=== PATIENT | female | born 1945 | race Caucasian/White ===

== ENCOUNTER 2017-12-17 10:32 | Emergency (ER) | payer MEDICARE ==
[~2017-12-17] VITALS: Ht 172.7 cm; Wt 95.2 kg
[2017-12-17] MEDS ORDERED: LEVSOD88 PO (10:44)
[2017-12-17] MEDS ORDERED: Dyazide 37.5-21 EACH PO (10:46)
[2017-12-17] MEDS ORDERED: Zantac150 MG PO (10:47)
[2017-12-17] MEDS ORDERED: Metformin HCl500 MG PO (10:47)
[2017-12-17] MEDS ORDERED: TRAZ100 PO (10:48)
[2017-12-17] MEDS ORDERED: SERT100 PO (10:48)
[2017-12-17] MEDS ORDERED: SIMV10 PO (10:48)
[2017-12-17] MEDS ORDERED: Keflex500 MG PO (11:52)
== END 2017-12-17 12:06 | disposition home or self-care (01) ==
LOC: ER 10:32
DX: L03.032 Cellulitis of left toe (principal); E11.9 Type 2 diabetes mellitus without complications; I10 Essential (primary) hypertension; Z79.899 Other long term (current) drug therapy; Z79.84 Long term (current) use of oral hypoglycemic drugs; Z87.891 Personal history of nicotine dependence
CPT/HCPCS: 73630; 99283-25

== ENCOUNTER → 2018-11-14 | Outpatient (CLI) | payer MEDICARE ==
[~2018-11-14] MED LIST: ASCO500 PO; Aspirin EC81 MG PO; Dyazide 37.5-21 EACH PO; FISH OIL 1,0001 EAC1 PO; Keflex500 MG PO; LEVSOD88 PO; MELATIN3 MG PO; MIRALAX17 GM PO; MULTI-DAY PLUS1 EAC1 PO; Metformin HCl1000 MG PO; Metformin HCl500 MG PO; SERT100 PO; SIMV10 PO; Simvastatin10 MG PO; Synthroid88 MCG PO; TRAZ100 PO; VITAMIN D-32000 UNIT PO; Zantac150 MG PO
[2018-11-14 12:32] LABS: BASOPHILS ABSOLUTE AUTO 0.04 K/mm3 (0.00-0.23); BASOPHILS PERCENT AUTO 1 % (0-2); EOSINOPHILS ABSOLUTE AUTO 0.12 K/mm3 (0.00-0.68); EOSINOPHILS PERCENT AUTO 2 % (0-6); Hematocrit 38.1 % (33.0-51.0); Hemoglobin 12.5 g/dL (11.5-16.0); IMMATURE GRAN ABSOLUTE AUTO 0.02 K/mm3 (0.00-0.10); IMMATURE GRAN PERCENT AUTO 0 % (0-1); LYMPHOCYTES ABSOLUTE AUTO 0.81 K/mm3 (0.84-5.20); LYMPHOCYTES PERCENT AUTO 11 % (21-46); MONOCYTES ABSOLUTE AUTO 0.82 K/mm3 (0.16-1.47); MONOCYTES PERCENT AUTO 11 % (4-13); Mean Corpuscular HGB 30.6 pg (26.0-34.0); Mean Corpuscular HGB Conc 32.8 g/dL (31.5-36.5); Mean Corpuscular Volume 93 fL (80-100); Mean Platelet Volume 10.6 fL (9.1-12.4); NEUTROPHILS PERCENT AUTO 77 % (41-73); Platelet Count 191 K/mm3 (150-400); RDW Coefficient Variation 13.5 % (11.7-14.2); RDW Standard Deviation 46.4 fL (35.1-46.3); Red Blood Cell Count 4.08 M/mm3 (3.80-5.20); White Blood Cell Count 7.71 K/mm3 (4.00-11.30)
[2018-11-14 12:44] LABS: Bun/Creatinine Ratio 19.1 (12.0-20.0); Calcium, Blood 8.6 mg/dL (8.5-10.1); Creatinine, Blood 1.15 mg/dL (0.40-1.00); Uric Acid, Blood 7.8 mg/dL (2.6-6.0)
== END | disposition home or self-care (01) ==
LOC: LAB SHORT 12:22 → LAB EV 12:22
PROVIDERS: Physician Assistant
DX: M79.672 Pain in left foot (principal)
CPT/HCPCS: 80048; 84550; 85025

== ENCOUNTER 2022-04-11 14:25 | Emergency (ER) | payer MEDICARE ==
[~2022-04-11] VITALS: Ht 175.3 cm; Wt 86.2 kg
[2022-04-11 15:42] LABS: Hematocrit 39.9 % (33.0-51.0); Hemoglobin 13.2 g/dL (11.5-16.0); Mean Corpuscular HGB 31.1 pg (26.0-34.0); Mean Corpuscular HGB Conc 33.1 g/dL (31.5-36.5); Mean Corpuscular Volume 94 fL (80-100); Mean Platelet Volume 10.6 fL (9.1-12.4); Platelet Count 268 K/mm3 (150-400); RDW Standard Deviation 44.6 fL (35.1-46.3); Red Blood Cell Count 4.25 M/mm3 (3.80-5.20)
[2022-04-11 15:56] LABS: Albumin, Blood 3.2 g/dL (3.4-5.0); Albumin/Globulin Ratio 0.7 (0.8-1.8); Bilirubin, Total 0.7 mg/dL (0.1-1.0); Calcium, Blood 9.7 mg/dL (8.5-10.1); Globulin, Blood 4.6 g/dL (2.2-4.0); Potassium, Blood 2.9 mmol/L (3.5-5.5); Total Protein, Blood 7.8 g/dL (6.4-8.2)
[2022-04-11 16:17] LABS: BAND PERCENT MAN 4 % (0-8); BASOPHILS ABSOLUTE MAN 0.18 K/mm3 (0.00-0.23); BASOPHILS PERCENT MAN 1 % (0-2); EOSINOPHILS PERCENT MAN 0 % (0-6); LYMPHOCYTES ABSOLUTE MAN 0.94 K/mm3 (0.84-5.20); LYMPHOCYTES PERCENT MAN 5 % (21-46); MONOCYTES ABSOLUTE MAN 1.13 K/mm3 (0.16-1.47); MONOCYTES PERCENT MAN 6 % (4-13); NEUTROPHILS ABSOLUTE MAN 16.63 K/mm3 (1.96-9.15); SEG NEUTROPHILS PERCENT MAN 84 % (41-73); TOTAL CELLS COUNTED 100
[2022-04-12] MEDS ORDERED: KLOR-CON M1010 MEQ PO (17:53)
[2022-04-12] MEDS ORDERED: SERT100 PO (17:54)
[2022-04-12] MEDS ORDERED: METFORMIN HCL500 M2 PO (17:55)
== END 2022-04-11 21:09 | disposition left against medical advice (07) ==
LOC: ER 14:25
PROVIDERS: Emergency Medicine
DX: R22.0 Localized swelling, mass and lump, head (principal); Z53.21 Procedure and treatment not carried out due to patient leaving prior to being seen by health care provider
CPT/HCPCS: 70491; 80053; 85025; J0295; Q9967

== ENCOUNTER 2022-04-12 13:43 | Inpatient (IN) | payer MEDICARE ==
[~2022-04-12] VITALS: Ht 175.3 cm; Wt 91.2 kg
[~2022-04-12 13:43] MED LIST changes: +DYAZIDE 37.5-21 EACH PO
[2022-04-12 14:59] LABS: Hematocrit 39.5 % (33.0-51.0); Hemoglobin 13.5 g/dL (11.5-16.0); Mean Corpuscular HGB 31.4 pg (26.0-34.0); Mean Corpuscular HGB Conc 34.2 g/dL (31.5-36.5); Mean Corpuscular Volume 92 fL (80-100); Mean Platelet Volume 10.3 fL (9.1-12.4); Platelet Count 301 K/mm3 (150-400); RDW Standard Deviation 43.8 fL (35.1-46.3); White Blood Cell Count 20.79 K/mm3 (4.00-11.30)
[2022-04-12 15:11] LABS: BASOPHILS PERCENT MAN 1 % (0-2); EOSINOPHILS PERCENT MAN 0 % (0-6); LYMPHOCYTES ABSOLUTE MAN 1.45 K/mm3 (0.84-5.20); LYMPHOCYTES PERCENT MAN 7 % (21-46); MONOCYTES ABSOLUTE MAN 1.24 K/mm3 (0.16-1.47); MONOCYTES PERCENT MAN 6 % (4-13); NEUTROPHILS ABSOLUTE MAN 17.87 K/mm3 (1.96-9.15); SEG NEUTROPHILS PERCENT MAN 86 % (41-73); TOTAL CELLS COUNTED 100
[2022-04-12 15:16] LABS: Albumin/Globulin Ratio 0.6 (0.8-1.8); Bilirubin, Total 0.6 mg/dL (0.1-1.0); Bun/Creatinine Ratio 18.3 (12.0-20.0); Calcium, Blood 9.7 mg/dL (8.5-10.1); Creatinine, Blood 1.15 mg/dL (0.40-1.00); Potassium, Blood 3.3 mmol/L (3.5-5.5)
[2022-04-12] MEDS ORDERED: KLOR-CON M1010 MEQ PO (17:53)
[2022-04-12] MEDS ORDERED: SERT100 PO (17:54)
[2022-04-12] MEDS ORDERED: METFORMIN HCL500 M2 PO (17:55)
--- NOTE | 2022-04-13 04:46 | NUR ---
PURE PAK MACHINE OPERATOR SUMMARY PT ARRIVED TO THE UNIT IN NO DISTRESS TRANSFERING HERSELF FROM ER GURNEY TO MEDICAL FLOOR BED. PT IS ALERT AND ORIENTED COMMUNICATING APPROPRIATELY W STAFF. PT HAS DENIED ANY SIGNIFICANT PAIN SINCE ARRIVING TO THE FLOOR. PTS R JAW IS VERY SWOLLEN BUT SHOWS NO SIGNS OF IMPAIRED SWALLOWING OR BREATHING. PT HAS SELPT FOR MOST OF THE NIGHT W CALL LIGHT WITHIN REACH. WILL REPORT TO ONCOMING RN.
[2022-04-13 05:09] LABS: Hematocrit 35.4 % (33.0-51.0); Hemoglobin 11.9 g/dL (11.5-16.0); Mean Corpuscular HGB 31.2 pg (26.0-34.0); Mean Corpuscular HGB Conc 33.6 g/dL (31.5-36.5); Mean Corpuscular Volume 93 fL (80-100); Mean Platelet Volume 10.1 fL (9.1-12.4); Platelet Count 265 K/mm3 (150-400); RDW Coefficient Variation 13.1 % (11.7-14.2); Red Blood Cell Count 3.81 M/mm3 (3.80-5.20)
[2022-04-13 05:44] LABS: Bun/Creatinine Ratio 19.2 (12.0-20.0); Calcium, Blood 8.7 mg/dL (8.5-10.1); Creatinine, Blood 1.04 mg/dL (0.40-1.00); Potassium, Blood 3.4 mmol/L (3.5-5.5)
--- NOTE | 2022-04-13 17:50 | NUR ---
SHIFT SUMMARY PT AOX4 AND INDEPENDENT IN THE ROOM. SHE HAS BEEN SITTING UP IN THE CHAIR, WATCHING TELEVISION ALL SHIFT. HER INITIAL IV WENT BAD AND A SECOND WAS PLACED IN THE LEFT HAND. SHE HAS HAD NO C/O P/N/V. SHE REMAINS ON A CLEAR LIQUID DIET. WILL REPORT TO THE ONCOMING NURSE.
--- NOTE | 2022-04-14 04:56 | NUR ---
SHIFT SUMMARY PATIENT HAD NO ACUTE CHANGES. AXOX 4 AND INDEPENDENT IN ROOM. PIV REMAINS INTACT. NS INFUSING AT 100 mL/HR. IV ABXS INFUSED. CBG 137. REPORTED RIGHT SIDE FACIAL PAIN IS IMPROVING. VSS/AFEBRILE. DENIES SOB AND N/V. WATCHED TV ON/OFF. CALL LIGHT IN REACH. BED IN LOWEST POSITION. WILL CONTINUE TO MONITOR UNTIL DAY SHIFT NURSE ASSUMES CARE.
[2022-04-14 09:07] LABS: Hematocrit 38.1 % (33.0-51.0); Hemoglobin 12.9 g/dL (11.5-16.0); Mean Corpuscular HGB 31.5 pg (26.0-34.0); Mean Corpuscular HGB Conc 33.9 g/dL (31.5-36.5); Mean Corpuscular Volume 93 fL (80-100); Mean Platelet Volume 10.1 fL (9.1-12.4); Platelet Count 371 K/mm3 (150-400); RDW Coefficient Variation 13.2 % (11.7-14.2); RDW Standard Deviation 45.2 fL (35.1-46.3); Red Blood Cell Count 4.09 M/mm3 (3.80-5.20)
[2022-04-14 09:27] LABS: Bun/Creatinine Ratio 21.3 (12.0-20.0); Calcium, Blood 9.2 mg/dL (8.5-10.1); Creatinine, Blood 0.89 mg/dL (0.40-1.00); Potassium, Blood 3.6 mmol/L (3.5-5.5)
[2022-04-14] MEDS ORDERED: AMOCLA875 PO (11:24)
[2022-04-14] MEDS ORDERED: DECADRON4 M1 PO (11:25)
--- NOTE | 2022-04-14 12:29 | NUR ---
DISCHARGE SUMMARY PATIENT IS ALERT AND ORIENTED. PATIENT HAS NOT HAD ANY ACUTE EVENTS THIS SHIFT. VITAL SIGNS REVIEWED. IV REMOVED WNL. PATIENT READ DISCHARGE INSTRUCTIONS. PATIENT WHEELED OUT BY THIS RN TO PATIENTS CAR, PATIENTS FAMILY DRIVING PT TO HOME.
== END 2022-04-14 12:17 | disposition home or self-care (01) | DRG 872 ==
LOC: ER 13:43 → ERHOLD 13:44 → ER 13:44 → MEDS 21:55 → ERHOLD 21:55 → MEDS 04-13 17:32 → ERHOLD 04-13 17:32 → MEDS 04-13 17:32
PROVIDERS: Internal Medicine; Physician Assistant; ADMIT Internal Medicine
DX: A41.9 Sepsis, unspecified organism (principal); E87.1 Hypo-osmolality and hyponatremia; E87.20 Acidosis, unspecified; K11.20 Sialoadenitis, unspecified; K59.09 Other constipation; I10 Essential (primary) hypertension; E87.6 Hypokalemia; E03.9 Hypothyroidism, unspecified; E11.9 Type 2 diabetes mellitus without complications; F32.A Depression, unspecified; Z23 Encounter for immunization; Z91.030 Bee allergy status; Z79.899 Other long term (current) drug therapy; Z79.84 Long term (current) use of oral hypoglycemic drugs; Z79.82 Long term (current) use of aspirin; Z98.890 Other specified postprocedural states; Z87.891 Personal history of nicotine dependence
CPT/HCPCS: 36415; 80048; 80053; 82947; 83605; 85025; 85027; 87040; 90686; 96361; 96365; 96366; 96367; 96375; 96376; 99284-25; A9270; G0008; G0378; J0295; J1100; J1885; J2270; J2405; J3480; J7030; J7050

== ENCOUNTER 2022-05-09 10:01 | Emergency (ER) | payer MEDICARE ==
[~2022-05-09] VITALS: Ht 175.3 cm; Wt 83.9 kg
[~2022-05-09 10:01] MED LIST changes: +AMOCLA875 PO; +DECADRON4 M1 PO; +KLOR-CON M1010 MEQ PO; +METFORMIN HCL500 M2 PO
[2022-05-09] MEDS ORDERED: AMOCLA875 PO (10:24)
== END 2022-05-09 10:48 | disposition home or self-care (01) ==
LOC: ER 10:01
DX: K11.20 Sialoadenitis, unspecified (principal); E11.9 Type 2 diabetes mellitus without complications; I10 Essential (primary) hypertension; Z91.038 Other insect allergy status; Z87.891 Personal history of nicotine dependence
CPT/HCPCS: A9270

== ENCOUNTER 2022-09-12 10:39 | Inpatient (IN) | payer MEDICARE ==
[~2022-09-12] VITALS: Ht 175.3 cm; Wt 78.5 kg
[~2022-09-12 10:39] MED LIST changes: +DAILY-VITE1 EAC1 PO; +EUTHYROX88 MCG PO; -FISH OIL 1,0001 EAC1 PO; -MULTI-DAY PLUS1 EAC1 PO; +OMEGA-3 FISH O1 EAC6 PO; -Synthroid88 MCG PO; -VITAMIN D-32000 UNIT PO; +Vitamin D1000 UNI1 PO
[2022-09-12 12:04] LABS: BASOPHILS ABSOLUTE AUTO 0.04 K/mm3 (0.00-0.23); BASOPHILS PERCENT AUTO 0 % (0-2); EOSINOPHILS ABSOLUTE AUTO 0.03 K/mm3 (0.00-0.68); EOSINOPHILS PERCENT AUTO 0 % (0-6); Hematocrit 37.6 % (33.0-51.0); Hemoglobin 12.7 g/dL (11.5-16.0); IMMATURE GRAN ABSOLUTE AUTO 0.08 K/mm3 (0.00-0.10); IMMATURE GRAN PERCENT AUTO 1 % (0-1); LYMPHOCYTES ABSOLUTE AUTO 0.86 K/mm3 (0.84-5.20); LYMPHOCYTES PERCENT AUTO 7 % (21-46); MONOCYTES PERCENT AUTO 7 % (4-13); Mean Corpuscular HGB 30.4 pg (26.0-34.0); Mean Corpuscular HGB Conc 33.8 g/dL (31.5-36.5); Mean Corpuscular Volume 90 fL (80-100); Mean Platelet Volume 9.8 fL (9.1-12.4); NEUTROPHILS ABSOLUTE AUTO 10.96 K/mm3 (1.96-9.15); NEUTROPHILS PERCENT AUTO 85 % (41-73); Platelet Count 250 K/mm3 (150-400); RDW Standard Deviation 45.9 fL (35.1-46.3); Red Blood Cell Count 4.18 M/mm3 (3.80-5.20); White Blood Cell Count 12.87 K/mm3 (4.00-11.30)
[2022-09-12 12:30] LABS: Albumin, Blood 3.4 g/dL (3.4-5.0); Albumin/Globulin Ratio 1.1 (0.8-1.8); Bilirubin, Total 0.6 mg/dL (0.1-1.0); Bun/Creatinine Ratio 14.6 (12.0-20.0); Calcium, Blood 8.3 mg/dL (8.5-10.1); Creatinine, Blood 3.49 mg/dL (0.40-1.00); Potassium, Blood 2.4 mmol/L (3.5-5.5); Total Protein, Blood 6.4 g/dL (6.4-8.2)
[2022-09-12 12:43] LABS: Influenza A, PCR NEGATIVE (NEGATIVE); Influenza B, PCR NEGATIVE (NEGATIVE); Resp Syncytial Virus, PCR NEGATIVE (NEGATIVE); SARS-Cov-2 (COVID-19) PCR, MMC NEGATIVE (NEGATIVE)
[2022-09-12] MEDS ORDERED: FAMO20 PO (12:48)
[2022-09-12] MEDS ORDERED: K-Dur10 MEQ PO (12:48)
[2022-09-12 16:46] LABS: Bun/Creatinine Ratio 16.8 (12.0-20.0); Calcium, Blood 8.1 mg/dL (8.5-10.1); Creatinine, Blood 2.73 mg/dL (0.40-1.00); Potassium, Blood 3.3 mmol/L (3.5-5.5)
[2022-09-12 17:36] VITALS: BP 107/63
--- NOTE | 2022-09-12 18:36 | NUR ---
BLADDER SCAN 43 ML
[2022-09-12 19:19] VITALS: BP 96/79
[2022-09-13 02:41] VITALS: BP 83/66
[2022-09-13 02:45] VITALS: BP 104/52
[2022-09-13 05:39] LABS: BASOPHILS ABSOLUTE AUTO 0.06 K/mm3 (0.00-0.23); BASOPHILS PERCENT AUTO 1 % (0-2); EOSINOPHILS ABSOLUTE AUTO 0.09 K/mm3 (0.00-0.68); EOSINOPHILS PERCENT AUTO 1 % (0-6); Hemoglobin 11.2 g/dL (11.5-16.0); IMMATURE GRAN ABSOLUTE AUTO 0.02 K/mm3 (0.00-0.10); IMMATURE GRAN PERCENT AUTO 0 % (0-1); LYMPHOCYTES ABSOLUTE AUTO 1.04 K/mm3 (0.84-5.20); LYMPHOCYTES PERCENT AUTO 15 % (21-46); MONOCYTES ABSOLUTE AUTO 0.77 K/mm3 (0.16-1.47); MONOCYTES PERCENT AUTO 11 % (4-13); Mean Corpuscular HGB 30.4 pg (26.0-34.0); Mean Corpuscular HGB Conc 32.9 g/dL (31.5-36.5); Mean Corpuscular Volume 92 fL (80-100); Mean Platelet Volume 9.9 fL (9.1-12.4); NEUTROPHILS ABSOLUTE AUTO 4.93 K/mm3 (1.96-9.15); NEUTROPHILS PERCENT AUTO 71 % (41-73); Platelet Count 218 K/mm3 (150-400); RDW Coefficient Variation 14.1 % (11.7-14.2); RDW Standard Deviation 48.1 fL (35.1-46.3); Red Blood Cell Count 3.69 M/mm3 (3.80-5.20); White Blood Cell Count 6.91 K/mm3 (4.00-11.30)
[2022-09-13 06:07] LABS: Albumin, Blood 2.8 g/dL (3.4-5.0); Bilirubin, Total 0.4 mg/dL (0.1-1.0); Bun/Creatinine Ratio 22.2 (12.0-20.0); Calcium, Blood 8.3 mg/dL (8.5-10.1); Creatinine, Blood 1.71 mg/dL (0.40-1.00); Globulin, Blood 2.8 g/dL (2.2-4.0); Potassium, Blood 3.6 mmol/L (3.5-5.5); Total Protein, Blood 5.6 g/dL (6.4-8.2)
[2022-09-13 07:04] VITALS: BP 98/86
[2022-09-13 10:46] LABS: Campylobacter Sp Not Detected (NOT DETECT); Cryptosporidium Not Detected (NOT DETECT); E. Coli O157 Not Detected (NOT DETECT); Enteroaggregative E. coli-EAEC Not Detected (NOT DETECT); Enteropathogenic E. coli-EPEC Not Detected (NOT DETECT); Enterotoxigenic E. coli-ETEC Not Detected (NOT DETECT); Plesiomonas Shigelloides Not Detected (NOT DETECT); Salmonella Sp Not Detected (NOT DETECT); Shiga Toxin-prod E. coli-STEC Not Detected (NOT DETECT); Shigella/Enteroin E. coli-EIEC Not Detected (NOT DETECT); Vibrio Cholerae Not Detected (NOT DETECT); Vibrio Sp Not Detected (NOT DETECT); Yersinia Enterocolitica Not Detected (NOT DETECT)
[2022-09-13 10:47] LABS: Adenovirus F 40/41 Not Detected (NOT DETECT); Astrovirus Not Detected (NOT DETECT); Cyclospora Cayetanensis Not Detected (NOT DETECT); Entamoeba Histolytica Not Detected (NOT DETECT); Giardia Lamblia Not Detected (NOT DETECT); Norovirus GI/GII Not Detected (NOT DETECT); Rotavirus A Not Detected (NOT DETECT); Sapovirus Not Detected (NOT DETECT)
[2022-09-13 15:14] VITALS: BP 108/63
--- NOTE | 2022-09-13 18:52 | NUR ---
SHIFT SUMMARY PT WITH 1 PERSON ASSIST USING FWW TO BATHROOM. REPORTED INCREASED DIZZINESS THIS AFTERNOON. ANTIVERT GIVEN AND PT REPORTED IT HELPED. STATED WHEN SHE HAD THE "ROOM SPINNING" FEELING IT WAS WORSE WHEN SHE TURNED HER HEAD TO THE LEFT. UP IN CHAIR FOR SUPPER AND TOLERATED WELL.
[2022-09-13 19:37] VITALS: BP 115/83
[2022-09-14 04:48] VITALS: BP 114/67
[2022-09-14 06:22] LABS: Hematocrit 32.8 % (33.0-51.0); Hemoglobin 10.6 g/dL (11.5-16.0); Mean Corpuscular HGB 30.2 pg (26.0-34.0); Mean Corpuscular HGB Conc 32.3 g/dL (31.5-36.5); Mean Corpuscular Volume 93 fL (80-100); Mean Platelet Volume 9.6 fL (9.1-12.4); Platelet Count 184 K/mm3 (150-400); RDW Coefficient Variation 14.2 % (11.7-14.2); RDW Standard Deviation 48.7 fL (35.1-46.3); Red Blood Cell Count 3.51 M/mm3 (3.80-5.20)
[2022-09-14 07:22] LABS: Albumin, Blood 2.8 g/dL (3.4-5.0); Albumin/Globulin Ratio 1.1 (0.8-1.8); Bilirubin, Total 0.5 mg/dL (0.1-1.0); Bun/Creatinine Ratio 25.5 (12.0-20.0); Calcium, Blood 8.1 mg/dL (8.5-10.1); Creatinine, Blood 1.06 mg/dL (0.40-1.00); Globulin, Blood 2.6 g/dL (2.2-4.0); Potassium, Blood 3.3 mmol/L (3.5-5.5); Total Protein, Blood 5.4 g/dL (6.4-8.2)
[2022-09-14 07:26] VITALS: BP 118/87
[2022-09-14 07:50] LABS: BAND PERCENT MAN 4 % (0-8); BASOPHILS PERCENT MAN 0 % (0-2); EOSINOPHILS ABSOLUTE MAN 0.14 K/mm3 (0.00-0.68); EOSINOPHILS PERCENT MAN 2 % (0-6); LYMPHOCYTES ABSOLUTE MAN 1.12 K/mm3 (0.84-5.20); LYMPHOCYTES PERCENT MAN 16 % (21-46); MONOCYTES ABSOLUTE MAN 0.42 K/mm3 (0.16-1.47); MONOCYTES PERCENT MAN 6 % (4-13); NEUTROPHILS ABSOLUTE MAN 5.32 K/mm3 (1.96-9.15); SEG NEUTROPHILS PERCENT MAN 72 % (41-73); TOTAL CELLS COUNTED 100
[2022-09-14] MEDS ORDERED: MECL25 PO (11:18)
--- NOTE | 2022-09-14 12:00 | NUR ---
DISCHARGE INSTRUCTIONS COMPLETED AND DISCUSSED WITH PT EXPRESSING UNDERSTANDING. SCRIPTS FAXED TO [facility]. DAUGHTER IN LAW IN TO PICK PT UP. TO [facility] VIA W/C.
== END 2022-09-14 11:53 | disposition home or self-care (01) | DRG 683 ==
LOC: ER 10:39 → MEDS 10:40 → ER 10:40 → ERHOLD 10:40 → MEDS 17:30 → ENPENDDIS 09-14 09:09 → MEDS 09-14 11:53
PROVIDERS: Emergency Medicine; Student in an Organized Health Care Education/Training Program; ADMIT Hospitalist
DX: N17.9 Acute kidney failure, unspecified (principal); E87.1 Hypo-osmolality and hyponatremia; S22.31XA Fracture of one rib, right side, initial encounter for closed fracture; E86.0 Dehydration; E87.6 Hypokalemia; Z66 Do not resuscitate; E86.9 Volume depletion, unspecified; I12.9 Hypertensive chronic kidney disease with stage 1 through stage 4 chronic kidney disease, or unspecified chronic kidney disease; E11.22 Type 2 diabetes mellitus with diabetic chronic kidney disease; N18.9 Chronic kidney disease, unspecified; I95.9 Hypotension, unspecified; E03.9 Hypothyroidism, unspecified; R91.1 Solitary pulmonary nodule; F32.A Depression, unspecified; W18.30XA Fall on same level, unspecified, initial encounter; R29.6 Repeated falls; Z20.822 Contact with and (suspected) exposure to COVID-19; Z91.030 Bee allergy status; Z98.890 Other specified postprocedural states; Z87.891 Personal history of nicotine dependence; Z79.82 Long term (current) use of aspirin; Z79.84 Long term (current) use of oral hypoglycemic drugs; Z79.899 Other long term (current) drug therapy
CPT/HCPCS: 0241U; 36415; 70450; 71260; 80048; 80053; 82550; 82947; 83735; 84439; 84443; 84484; 85007; 85025; 85027; 87507; 93005; 93010; 96365-59; 96372; 97112; 97116; 97162; 97530; 99285-25; A9270; G0378; J1650; J3480; J7030; J7050; Q9967

== ENCOUNTER 2022-09-19 20:36 | Inpatient (IN) | payer MEDICARE ==
[~2022-09-19] VITALS: Ht 175.3 cm; Wt 93.0 kg
[~2022-09-19 20:36] MED LIST changes: +FAMO20 PO; +K-Dur10 MEQ PO; +MECL25 PO
[2022-09-19 21:41] LABS: BASOPHILS ABSOLUTE AUTO 0.04 K/mm3 (0.00-0.23); BASOPHILS PERCENT AUTO 0 % (0-2); EOSINOPHILS PERCENT AUTO 0 % (0-6); Hematocrit 30.4 % (33.0-51.0); Hemoglobin 10.4 g/dL (11.5-16.0); IMMATURE GRAN ABSOLUTE AUTO 0.15 K/mm3 (0.00-0.10); IMMATURE GRAN PERCENT AUTO 1 % (0-1); LYMPHOCYTES ABSOLUTE AUTO 0.49 K/mm3 (0.84-5.20); LYMPHOCYTES PERCENT AUTO 3 % (21-46); MONOCYTES ABSOLUTE AUTO 1.25 K/mm3 (0.16-1.47); MONOCYTES PERCENT AUTO 8 % (4-13); Mean Corpuscular HGB Conc 34.2 g/dL (31.5-36.5); Mean Corpuscular Volume 88 fL (80-100); Mean Platelet Volume 9.9 fL (9.1-12.4); NEUTROPHILS ABSOLUTE AUTO 14.09 K/mm3 (1.96-9.15); NEUTROPHILS PERCENT AUTO 88 % (41-73); Platelet Count 218 K/mm3 (150-400); RDW Coefficient Variation 14.5 % (11.7-14.2); RDW Standard Deviation 46.4 fL (35.1-46.3); Red Blood Cell Count 3.47 M/mm3 (3.80-5.20); White Blood Cell Count 16.02 K/mm3 (4.00-11.30)
[2022-09-19 22:03] LABS: Albumin, Blood 2.6 g/dL (3.4-5.0); Albumin/Globulin Ratio 0.7 (0.8-1.8); Bun/Creatinine Ratio 25.1 (12.0-20.0); Calcium, Blood 9.2 mg/dL (8.5-10.1); Creatinine, Blood 0.96 mg/dL (0.40-1.00); Globulin, Blood 3.6 g/dL (2.2-4.0); Potassium, Blood 3.2 mmol/L (3.5-5.5); Total Protein, Blood 6.2 g/dL (6.4-8.2)
[2022-09-19 22:36] LABS: Creatine Kinase MB 4.1 ng/mL (0.0-3.6); Creatine Kinase MB Index 1.1 (0.0-4.0)
[2022-09-19] MEDS ORDERED: Simvastatin10 MG PO (23:40)
[2022-09-20 00:50] LABS: Source, Urine Straight Cath
[2022-09-20 03:12] VITALS: BP 115/49
--- NOTE | 2022-09-20 05:49 | NUR ---
T/F AND SUMMARY: REPORT RECIEVED FROM CRISTIAN MENDOSA RN AT 0220 AND PT T/F VIA [facility] AT 0310 TO ROOM 359. SHE'S A/OX4 AND INDEPENDENT AT BASELINE BUT REPORTS MULTIPLE FALLS (APPROX X6) RECENTLY W/ACCOMPANIED INCREASED WEAKNESS AND POSSIBLE INJURIES. SHE HAS SCATTERED BRUISES T/O BODY W/2 LARGE BRUISES TO BILAT HIPS AND SMALLER ONE TO BUTTOCKS AND X4 EXT'S. PT ALSO C/O VERY PAINFUL R.FOOT/ANKLE THAT'S OBSERVED TO BE SWOLLEN W/PINK TINGE TO TOP OF FOOT. BLE'S ARE EDEMATOUS AND SHE HAS CELLULITIS TO HER L.MIDDLE FINGER. IT'S BRIGHT RED, SWOLLEN TIGHT SKIN AND TENDERNESS. MD ALERTED TO GENERALIZED PAIN AND 9/10 FOOT PAIN, TYLENOL PRN RX'D AND WILL BE ADMINISTERED UPON VERIFICATION BY PHARMACY. IV VANCO, ZOSYN AND 1.5L NS BOLUS RECIEVED IN ER THEN ADDITIONAL DOSES OF VANCO AND ZOSYN ARE TO BE RECIEVED W/CONT NS INFUSING AT 100 ML/HR. CHEST AND R.ANKLE XRAYS WERE COMPLETED, RESULTS PENDING AND L.HAND XRAY AND ECHO PLANNED FOR TODAY. SHE WAS COMMENCED ON TELE AND IS NSR AT 80'S BPM. CONT BIOX INTACT, NO S/S RESP DISTRESS. PUREWIC CATH WAS PLACED FOR WEAKNESS, INABILITY TO WT BEAR ON R.FOOT AND PAIN. NO ACUTE CHANGES, VSS/AFEBRILE. WCTM AND REPORT TO DAY RN.
[2022-09-20 07:31] VITALS: BP 111/56
[2022-09-20 07:31] LABS: Appearance, Urine Hazy (Clear); Color, Urine Yellow (P-Yellow)
[2022-09-20 07:32] LABS: Bilirubin, Urine Neg (Neg); Blood, Urine 1+ (Neg); Glucose Qualitative, Urine Neg (Neg); Ketones, Urine 1+ (Neg); Leukocyte Esterase, Urine Neg (Neg); Nitrite, Urine Neg (Neg); Protein, Urine 2+ (Neg); Urobilinogen, Urine NORM (Normal)
[2022-09-20 07:33] LABS: Bacteria Few /hpf; Red Blood Cells, Urine 0-2 /hpf (0-2); Squamous Epithelial Cells Mod /hpf (Few); White Blood Cells, Urine 0-2 /hpf (0-5)
[2022-09-20 07:34] LABS: Amorphous Mod (0-Heavy)
--- NOTE | 2022-09-20 12:09 | NUR ---
PATEINT RESTING NO DISTRESS, RESP EVEN AND NONLABORED, CALL LIGHT WITH IN REACH
[2022-09-20 13:46] LABS: Uric Acid, Blood 3.5 mg/dL (2.6-6.0)
[2022-09-20 13:47] LABS: Bun/Creatinine Ratio 27.1 (12.0-20.0); Calcium, Blood 8.7 mg/dL (8.5-10.1); Creatinine, Blood 0.81 mg/dL (0.40-1.00); Potassium, Blood 3.6 mmol/L (3.5-5.5)
[2022-09-20 16:05] VITALS: BP 112/92
--- NOTE | 2022-09-20 18:17 | NUR ---
ALERT AND ORIENTED TO ALL, MAKES NEDS KNOWN, ANTIBIOICS CHANGED TODAY, SWELLING HAS NOT DECREASED, MINIMAL MOVEMNT, LARGE BRUISES ON BODY FROM THE FREQUENT FALLS, VSS, MEDICATED FOR PAIN WITH TYLENOL, HYDROCODONE AVAILABLE BUT PATIENT CONTINUES TO SAY ADEQUAE RELIEF FROM TYLENOL, NO ACUTE CHANGES TODAY. WILL REALY TO PM RN
[2022-09-20 19:20] LABS: Source, Urine Foley catheter
[2022-09-20 19:24] LABS: Appearance, Urine Clear (Clear); Bilirubin, Urine Neg (Neg); Blood, Urine Neg (Neg); Color, Urine Yellow (P-Yellow); Glucose Qualitative, Urine Neg (Neg); Ketones, Urine Neg (Neg); Leukocyte Esterase, Urine Neg (Neg); Nitrite, Urine Neg (Neg); Protein, Urine 2+ (Neg); Urobilinogen, Urine NORM (Normal)
[2022-09-20 19:37] LABS: Bacteria Few /hpf; Red Blood Cells, Urine 0-2 /hpf (0-2); Squamous Epithelial Cells Few /hpf (Few); Yeast/Fungi Urine Rare /hpf
[2022-09-20 20:05] VITALS: BP 119/63
[2022-09-21 05:06] VITALS: BP 117/64
--- NOTE | 2022-09-21 05:23 | NUR ---
SHIFT SUMMERY, PT HAD TEMP PF 100.9 LAST NOC AND BC CAME BACK GRAM + COCCI IN CLUSTERS. PT STARTED ON IV VANCO. PT RESTING IN BED JAVIER CATH DRAINING YELLOW URINE. CALL LIGHT IN REACH.
[2022-09-21 05:46] LABS: Hematocrit 30.6 % (33.0-51.0); Hemoglobin 10.3 g/dL (11.5-16.0); Mean Corpuscular HGB 30.5 pg (26.0-34.0); Mean Corpuscular HGB Conc 33.7 g/dL (31.5-36.5); Mean Corpuscular Volume 91 fL (80-100); Mean Platelet Volume 10.3 fL (9.1-12.4); Platelet Count 235 K/mm3 (150-400); Red Blood Cell Count 3.38 M/mm3 (3.80-5.20)
[2022-09-21 06:25] LABS: Bun/Creatinine Ratio 25.9 (12.0-20.0); Calcium, Blood 8.7 mg/dL (8.5-10.1); Creatinine, Blood 0.77 mg/dL (0.40-1.00); Potassium, Blood 3.7 mmol/L (3.5-5.5)
[2022-09-21 07:43] VITALS: BP 117/68
[2022-09-21 16:09] VITALS: BP 123/70
--- NOTE | 2022-09-21 18:31 | NUR ---
SHIFT SUMMARY PT PAINFUL IN THE BACK, L FINGER, AND R FOOT. ORTHO CONSULT CALLED FOR FX IN R FOOT. MEDICATED FOR PAIN. MRI COMPLETED. PT STRUGGLES TO HAVE HER HEAD ROLLED UP IN BED DUE TO BACK PAIN. OF LAST WEEK WHEN THEN RN DISCHARGED PT, SHE WAS WALKING TO BATHROOM INDEPENDENTLY AND HAD MINIMAL PAIN. NO UNABLE TO MOVE WITHOUT REPORTING PAIN OR HER R FOOT BEING TOUCHED. FOLE PATENT AND DRAINING CLEAR YELLOW URINE.
[2022-09-21 20:08] VITALS: BP 111/68
[2022-09-22 02:55] VITALS: BP 104/70
[2022-09-22 07:41] VITALS: BP 109/67
[2022-09-22 11:24] LABS: Hematocrit 28.7 % (33.0-51.0); Hemoglobin 9.7 g/dL (11.5-16.0); Mean Corpuscular HGB 29.8 pg (26.0-34.0); Mean Corpuscular HGB Conc 33.8 g/dL (31.5-36.5); Mean Corpuscular Volume 88 fL (80-100); Platelet Count 297 K/mm3 (150-400); RDW Coefficient Variation 14.9 % (11.7-14.2); RDW Standard Deviation 48.1 fL (35.1-46.3); Red Blood Cell Count 3.25 M/mm3 (3.80-5.20); White Blood Cell Count 20.46 K/mm3 (4.00-11.30)
[2022-09-22 11:44] LABS: Creatinine, Blood 0.68 mg/dL (0.40-1.00)
[2022-09-22 16:49] VITALS: BP 105/72
--- NOTE | 2022-09-22 18:37 | NUR ---
SHIFT SUMMARY PATIENT WITH SOME PAIN TODAY, MEDICATED WITH NORCO, WITH RELIEF. AOX4 CALLS APPROPRIATELY, CALL LIGHT IN REACH, SWELLING OF LEFT FINGER AND RIGHT LOWER LEG CONTINUE BUT LESSENED THIS EVENING.WILL CONTINUE TO MONITOR.
[2022-09-22 20:58] VITALS: BP 108/65
--- NOTE | 2022-09-23 04:31 | NUR ---
MARSHAL GOLDSTEIN. PT FELT LIKE SHE WAS GOING TO HAVE A BM PT REFUSED TO USE BED ISAACS AND HAS A 2 PERSON ASSIST TO BSC. PT UNABLE TO HAVE BM. PT IN A LOT OF PAIN AND WAS MEDICATED. PT ALSO REQUESTED HEATING PAD. PAD SET UP BUT PT WANTED TOP WAIT TILL PAIN MED TOOK AFFECT. PT STATED IF SHE FELL ASLEEP TO NOT WAKE HER TO PLACE HEATING PAD. PT SLEEPING AND APPEARS TO BE COMFORTABLE AT THIS TIME. CALL LIGHT IN REACH.
[2022-09-23 05:02] VITALS: BP 99/69
[2022-09-23 08:12] VITALS: BP 117/67
--- NOTE | 2022-09-23 11:54 | NUR ---
Plan for I/D of finger. Patient had Eliquis last night, so procedure was cancelled. Surgeon instructed RN to hold eliquis/aspirin today & NPO at midnight. Middle finger/left hand, red/swollen, reddness outlined. Patient reports severe pain with movement, unable to sit up in bed. Griffin catheter in place for retention, draining to gravity. Vitals stable, telemetry in place, HR SR @ 69. Will continue plan of care.
--- NOTE | 2022-09-23 13:00 | NUR ---
ASSUMED CARE OF PATIENT. PT LAYING IN BED WITH EYES CLOSED. BREATHING EVEN AND UNLABORED. CONTINUOUS OXYGEN MONITORING IN PLACE.
--- NOTE | 2022-09-23 13:45 | NUR ---
2048 ASSUMED CARE OF PATIENT. REPORT RECEIVED FROM TEJAS KONG RN. PER GEODESY TEACHER PT IS SR WITH OCC PAC, PVC
--- NOTE | 2022-09-23 13:55 | NUR ---
PATIENT CONSENT STATEMENT. PT CONSENTED THIS 2ND YEAR RN STUDENT TO PARTICIPATE IN HER CARE TODAY.
[2022-09-23 16:02] VITALS: BP 117/67
--- NOTE | 2022-09-23 18:44 | NUR ---
END OF SHIFT SUMMARY. PT ON CONTINUOUS PULSE OX AND MAINTAINING SATS ABOVE 92%. LEFT MIDDLE FINGER IS RED AND SWOLLEN, NO DRAINAGE PRESENT. PT EXPERIENCING BACK PAIN THROUGHOUT SHIFT THAT IS WORSENED WITH MOVEMENT AND POSITIONING. MEDICATED WITH NORCO 1X WITH SOME RELIEF. PT DENIES CHEST PAIN OR SHORTNESS OF BREATH. JAVIER CATHETER DRAINING, PT DENIES BLOATING OR PAIN FROM CATHETER.
[2022-09-23 21:20] VITALS: BP 107/54
[2022-09-24] VITALS (20 sets, daily range): BP systolic 96–131; BP diastolic 56–94
[2022-09-24 05:52] LABS: Hematocrit 27.7 % (33.0-51.0); Mean Corpuscular HGB 29.8 pg (26.0-34.0); Mean Corpuscular HGB Conc 32.5 g/dL (31.5-36.5); Mean Corpuscular Volume 92 fL (80-100); Mean Platelet Volume 9.5 fL (9.1-12.4); Platelet Count 378 K/mm3 (150-400); RDW Coefficient Variation 14.8 % (11.7-14.2); RDW Standard Deviation 50.7 fL (35.1-46.3); Red Blood Cell Count 3.02 M/mm3 (3.80-5.20)
--- NOTE | 2022-09-24 06:09 | NUR ---
PATIENT IS ALERT AND OREINTED, COOPERATIVE WITH CARE. VERY PAINFUL, TREATED PER MAR. REMAINS HYPOTENSIVE, OTHERWISE VSS. WAS NPO SINCE 0000. BEDREST TO CONT PATIENT IS NON WEIGHT BEARING TO RLE, AFTER FALL/FRACTURE. NEW IV PLACED, AND SL INBETWEEN ABT'S. WILL CONT TO MONITOR.
[2022-09-24 06:18] LABS: Bun/Creatinine Ratio 26.2 (12.0-20.0); Calcium, Blood 8.5 mg/dL (8.5-10.1); Creatinine, Blood 0.57 mg/dL (0.40-1.00); Potassium, Blood 3.8 mmol/L (3.5-5.5)
--- NOTE | 2022-09-24 18:53 | NUR ---
SHIFT SUMMARY PT A&OX4 AND PLEASANT. PT WENT FOR I&D TODAY. TOLERATED PROCEDURE WELL. PT SLEPT SEVERAL HOURS UPON GETTING BACK TO ROOM. PT DENIED PAIN IN LEFT LONG FINGER BUT DID VERBALIZE SOME TINGLING. DIGIT FEELS SAME TEMP OTHER DIGITS AND HAND. CONTINUING TO MONITOR. VSS. PT ABLE TO TOLERATE SOME DINNER. PT CALLS APPROPTIATLY. BED IN LOWEST POSITON AND CALL LIGHT IN REACH.
[2022-09-24 21:41] LABS: Vancomycin, Trough 19.2 ug/mL (5.0-10.0)
[2022-09-25 00:19] VITALS: BP 111/71
[2022-09-25 05:20] VITALS: BP 109/62
--- NOTE | 2022-09-25 06:21 | NUR ---
PATIENT REMAINS ALERT AND ORIENTED X4, COOPERATIVE WITH CARE. L HAND BANDAGE CDI, AND R FOOT WRAP IN PLACE. NO BM THIS SHIFT, OR SINCE ADMIT. BC MEDS ADMINISTERED WELL PRUNE JUICE. BRUISING TO BILATERAL HIPS FROM PREV FALL. VSS. HOWEVER, ONLY 500 DARK U/O THIS SHIFT. EDUCATED OF INCREASED FLUID NEEDS. PAIN MANAGED PER MAR. WILL CONT TO MONITOR.
--- NOTE | 2022-09-25 09:00 | NUR ---
pt laying in bed awake, a/ox4, pleasant and cooperative with care, follows commands well, denies pain at this time, lungs are clear t/o, on r/a, resp even and unlabored, no cough noted, hrr, tele in place running sr per monitor, see strip, 2+ edema noted to right foot, which is wrapped in an treasure bandage for ankle fx, other foot no edema noted, pppA+2, cap refill <3 sec, vs stable, afebrile, piv site to rfa, site is clear and patent, btx4, abd flat soft nontender, voids via araya cath at this time, urine, clear yellow urine, skin has dressing to left middle finger from cellulitis and i&d, no drainge noted, skin otherwise c/w/d, chao colindres, call light in reach.
--- NOTE | 2022-09-25 17:21 | NUR ---
Pt had a bedbath, linen change, after speaking with Dr. Rivera got her up and to the chair with some difficulty, slowly with two people, she had bad back pain moving her at all, she was medicated, prior, notified of events, and recieved orders to increase frequency of norco and add a muscle relaxant, pt sitting up in chair at this time. call light in reach.
[2022-09-25 18:22] VITALS: BP 104/62
--- NOTE | 2022-09-25 19:36 | NUR ---
pt sitting up in chair, back is hurting, gave 5mg muscle relaxant, encouraged her to ask for pain meds when she needs them and not try to wait it out, will keep her npo after mid for possible i&d tomorrow, Dr. Gauthier in to see her, removed dressing from finger and had her soak the finger in tepid water for 20 minutes, will do again before sleep, and q4hrs while awake, call light in reach.
[2022-09-25 20:20] VITALS: BP 117/70
[2022-09-26 04:41] VITALS: BP 110/69
--- NOTE | 2022-09-26 05:10 | NUR ---
SHIFT SUMMARY: A&O X 4, ABLE TO MAKE NEEDS KNOWN. USES CALL LIGHT APPROPRIATELY. TRANSFERRED BACK TO BED THIS EVENING AFTER SITTING UP IN CHAIR TODAY. WBAT ON RIGHT LEG. I&D POSSIBLE 09/26 FINGER CONTINUES WITH REDNESS AND EDEMA. FINGER SOAKED FOR 20 MINUTES Q 4 HOURS. NPO AT MIDNIGHT WHICH SHE TOLERATED WELL. PERIPHERAL IV DC ON RIGHT HAND AND NEW PERIPHERAL PLACED ON LEFT FOREARM TO CONTINUE IV ABX THERAPY. PAIN MANAGEMENT PROVIDE THIS SHIFT.
[2022-09-26 08:02] VITALS: BP 114/75
[2022-09-26 11:32] LABS: Hematocrit 32.7 % (33.0-51.0); Hemoglobin 10.6 g/dL (11.5-16.0); Mean Corpuscular HGB 29.6 pg (26.0-34.0); Mean Corpuscular HGB Conc 32.4 g/dL (31.5-36.5); Mean Corpuscular Volume 91 fL (80-100); Mean Platelet Volume 9.6 fL (9.1-12.4); Platelet Count 464 K/mm3 (150-400); RDW Coefficient Variation 14.7 % (11.7-14.2); RDW Standard Deviation 49.6 fL (35.1-46.3); Red Blood Cell Count 3.58 M/mm3 (3.80-5.20); White Blood Cell Count 15.46 K/mm3 (4.00-11.30)
[2022-09-26 11:46] LABS: International Normalized Ratio 1.14; Prothrombin Time Results 11.9 Sec (9.7-11.5)
[2022-09-26 11:51] LABS: Bun/Creatinine Ratio 26.1 (12.0-20.0); Calcium, Blood 9.3 mg/dL (8.5-10.1); Creatinine, Blood 0.73 mg/dL (0.40-1.00); Potassium, Blood 4.3 mmol/L (3.5-5.5)
[2022-09-26 13:29] LABS: BAND PERCENT MAN 2 % (0-8); BASOPHILS PERCENT MAN 0 % (0-2); EOSINOPHILS PERCENT MAN 0 % (0-6); LYMPHOCYTES ABSOLUTE MAN 0.77 K/mm3 (0.84-5.20); LYMPHOCYTES PERCENT MAN 5 % (21-46); MONOCYTES ABSOLUTE MAN 1.39 K/mm3 (0.16-1.47); MONOCYTES PERCENT MAN 9 % (4-13); MYELOCYTE ABSOLUTE MAN 0.15 K/mm3 (0.00-0.00); MYELOCYTE PERCENT MAN 1 % (0-0); NEUTROPHILS ABSOLUTE MAN 13.14 K/mm3 (1.96-9.15); SEG NEUTROPHILS PERCENT MAN 83 % (41-73); TOTAL CELLS COUNTED 100
[2022-09-26 15:02] VITALS: BP 114/61
--- NOTE | 2022-09-26 17:38 | NUR ---
SHIFT SUMMARY PT. IS OF PLEASANT AFFECT, COOPERATIVE WITH CARE AND ABLE TO MAKE NEEDS KNOWN. PT . HAS DIFFICULTY GETTING UP FROM CHAIR, ABLE TO PIVOT TO BED FROM CHAIR AND CHAIR TO BED WITH 1-2 PERSON ASSIST. PT. REPORTS SHE HAS NOT HAD A BOWEL MOVEMENT IN 4 DAYS, BOWEL CARE PROVIDED PER ORDERS; SEE EMAR. NO BM THIS SHIFT. PAIN ASSESSED AND MEDICATED PER ORDERS; SEE EMAR. BED LOCKED AND IN LOWEST POSITION. CALL LIGHT WITHIN REACH.
[2022-09-26 19:19] VITALS: BP 120/67
[2022-09-27] VITALS (10 sets, daily range): BP systolic 96–138; BP diastolic 49–69
[2022-09-27 03:22] LABS: BASOPHILS ABSOLUTE AUTO 0.05 K/mm3 (0.00-0.23); BASOPHILS PERCENT AUTO 0 % (0-2); EOSINOPHILS ABSOLUTE AUTO 0.09 K/mm3 (0.00-0.68); EOSINOPHILS PERCENT AUTO 1 % (0-6); Hematocrit 25.5 % (33.0-51.0); Hemoglobin 8.4 g/dL (11.5-16.0); IMMATURE GRAN ABSOLUTE AUTO 0.46 K/mm3 (0.00-0.10); IMMATURE GRAN PERCENT AUTO 3 % (0-1); LYMPHOCYTES ABSOLUTE AUTO 1.15 K/mm3 (0.84-5.20); LYMPHOCYTES PERCENT AUTO 8 % (21-46); MONOCYTES ABSOLUTE AUTO 1.41 K/mm3 (0.16-1.47); MONOCYTES PERCENT AUTO 10 % (4-13); Mean Corpuscular HGB 29.8 pg (26.0-34.0); Mean Corpuscular HGB Conc 32.9 g/dL (31.5-36.5); Mean Corpuscular Volume 90 fL (80-100); Mean Platelet Volume 9.3 fL (9.1-12.4); NEUTROPHILS ABSOLUTE AUTO 10.84 K/mm3 (1.96-9.15); NEUTROPHILS PERCENT AUTO 77 % (41-73); Platelet Count 486 K/mm3 (150-400); RDW Coefficient Variation 14.6 % (11.7-14.2); RDW Standard Deviation 49.1 fL (35.1-46.3); Red Blood Cell Count 2.82 M/mm3 (3.80-5.20)
[2022-09-27 03:51] LABS: Bun/Creatinine Ratio 30.4 (12.0-20.0); Calcium, Blood 8.4 mg/dL (8.5-10.1); Creatinine, Blood 0.63 mg/dL (0.40-1.00); Potassium, Blood 4.2 mmol/L (3.5-5.5)
--- NOTE | 2022-09-27 06:07 | NUR ---
PER PHARMACY, HEPARIN WAS TITRATED AT 0420. IT WAS CHANGED TO 18/U/K/HR WITH A NEW RATE OF 27.7 ML/HR. 2 ATTEMPTS WERE MADE TO DOCUMENT THE CHANGE BUT THE COMPUTER WOULD NOT SAVE THE CHANGES. BILLIE MARSH RN WITNESSED THE RATE CHANGE.
[2022-09-27 16:41] LABS: Vancomycin, Trough 11.4 ug/mL (5.0-10.0)
--- NOTE | 2022-09-27 18:25 | NUR ---
PATIENT A/OX4, UP WITH FWW, GB AND 1 ASSIST TODAY. WENT DOWN FOR AN I&D OF L MIDDLE FINGER THIS EVENING. DRESSING TO L HAND REMAINS C/D/I. PATIENT REPORTS BACK PAIN, NORCO GIVEN X1. ACHS BLOOD SUGARS, NO COVERAGE NEEDED THIS SHIFT. VSS, ON RA. 20G IV TO R FA WNL AND SL. FALL PRECAUTIONS IN PLACE. JOHN WRAP TO R FOOT, WBAT PER MD ORDER. HEPARIN GTT D/C'D AND ELIQUIS RESTARTED.
--- NOTE | 2022-09-28 02:35 | NUR ---
SHIFT SUMMARY 77 YR F ADMITTED ON 09/20/22 FOR SEPSIS/ WOUND ON RIGHT MIDDLE FINGER. FULL CODE. NO ACUTE CHANGES THIS SHIFT. PT ATTEMPTED TO GET UP TO AMBULATE TO BATHROOM WITH ASSISTANCE BUT WAS UNABLE TO STAND ON HER OWN DUE TO BACK PAIN AND WEAKNESS. WITH ASSISTANCE SHE WAS A STAND/PIVOT TO BEDSIDE COMMODE. NO C/O PAIN IN RIGHT HAND AND DRESSING ON MIDDLE FINGER IS C/D/I. PT IS PLEASANT AND COOPERATIVE WITH CARE AND OTHER THAN BACK PAIN SHE APPEARS TO BE DOING WELL AND IS IN GOOD SPIRITS.
[2022-09-28 03:19] VITALS: BP 112/62
[2022-09-28 04:58] LABS: BASOPHILS ABSOLUTE AUTO 0.05 K/mm3 (0.00-0.23); BASOPHILS PERCENT AUTO 0 % (0-2); EOSINOPHILS ABSOLUTE AUTO 0.11 K/mm3 (0.00-0.68); EOSINOPHILS PERCENT AUTO 1 % (0-6); Hematocrit 24.6 % (33.0-51.0); IMMATURE GRAN ABSOLUTE AUTO 0.31 K/mm3 (0.00-0.10); IMMATURE GRAN PERCENT AUTO 2 % (0-1); LYMPHOCYTES PERCENT AUTO 7 % (21-46); MONOCYTES ABSOLUTE AUTO 1.15 K/mm3 (0.16-1.47); MONOCYTES PERCENT AUTO 9 % (4-13); Mean Corpuscular HGB 29.6 pg (26.0-34.0); Mean Corpuscular HGB Conc 32.5 g/dL (31.5-36.5); Mean Corpuscular Volume 91 fL (80-100); Mean Platelet Volume 9.3 fL (9.1-12.4); NEUTROPHILS ABSOLUTE AUTO 10.84 K/mm3 (1.96-9.15); NEUTROPHILS PERCENT AUTO 81 % (41-73); Platelet Count 500 K/mm3 (150-400); RDW Coefficient Variation 14.6 % (11.7-14.2); RDW Standard Deviation 48.8 fL (35.1-46.3); White Blood Cell Count 13.36 K/mm3 (4.00-11.30)
[2022-09-28 05:16] LABS: Albumin, Blood 1.6 g/dL (3.4-5.0); Albumin/Globulin Ratio 0.4 (0.8-1.8); Bilirubin, Total 0.2 mg/dL (0.1-1.0); Calcium, Blood 8.3 mg/dL (8.5-10.1); Creatinine, Blood 0.68 mg/dL (0.40-1.00); Globulin, Blood 3.7 g/dL (2.2-4.0); Potassium, Blood 3.9 mmol/L (3.5-5.5); Total Protein, Blood 5.3 g/dL (6.4-8.2)
[2022-09-28 08:17] VITALS: BP 123/70
--- NOTE | 2022-09-28 12:53 | NUR ---
09/28/22 1253 Catherine Villarreal VERIFICATIONS: EDIT CHART.
--- NOTE | 2022-09-28 18:10 | NUR ---
PATIENT UP IN CHIAR TODAY FOR MOST OF THE AFTERNOON. A/OX4, UP WITH FWW, GB AND 1 ASSIST. DRESSING CHANGED TODAY USING NON-ADHERENT AND KERLEX. VSS, ON RA. ACHS BLOOD SUGARS, NO COVERAGE NEEDED TODAY. TOLERATING ADA DIET. SR ON TELE, DENIES ANY CP OR PRESSURE. NORCO GIVEN TO TREAT LOWER BACK PAIN AND L MIDDLE FINGER PAIN. PATIENT CONTINENT OF BOWEL AND BLADDER. CALM AND COOPERATIVE WITH CARE, CALLS APPROPRIATELY FOR ASSISTANCE.
[2022-09-28 19:23] VITALS: BP 124/70
[2022-09-29 03:44] VITALS: BP 126/65
--- NOTE | 2022-09-29 04:53 | NUR ---
SHIFT SUMMARY 77 YR F ADMITTED ON 09/20/22 FOR RIGHT MIDDLE FINGER WOUND/SEPSIS. FULL CODE. NO ACUTE CHANGES THIS SHIFT. SHE HAS MADE SEVERAL ATTEMPTS TO AMBULATE TO THE BATHROOM WITH ASSISTANCE, BUT IS UNABLE TO DUE TO SEVERE BACK PAIN. SHE IS A 2 PERSON ASSIST TO THE BEDSIDE COMMODE. SHE IS VERY PLEASANT AND QUIET AND CALLS APPROPRIATELY FOR ASSISTANCE WHEN NEEDED.
[2022-09-29 08:00] VITALS: BP 121/60
--- NOTE | 2022-09-29 11:43 | NUR ---
NEURO ASSESSMENT L PUPIL FIXED AT 3MM NOT REACTIVE TO LIGHT. 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 NOT NOTED ON PREVIOUS ASSESSMENT.
[2022-09-29 16:29] VITALS: BP 130/70
--- NOTE | 2022-09-29 18:26 | NUR ---
SHIFT SUMMARY: PT IS AN A&O X4 77 YR OLD FEMALE ADMITTED ON 09/20/22 FOR FLEXOR TENOSYNOVTITIS SEPSIS. SHE HAD FALL AT HOME WHICH PROMPTED HER ADMISSION. IMAGING SHOWED A FX OF HER R ANKLE. INTERVENTIONS CALL FOR JOHN WRAP, ELEVATION, AND ICE. SHE IS WEIGHTBEARING ON THAT ANKLE. PT HAS CHRONIC LOWER BACK PAIN, THIS HAS WORSENED SINCE HER FALL. IMAGING OF BACK SHOWED FINDINGS OF DISCITIS. OF A RESULT FROM HER FALL SHE HAS SCATTERED BRUISING THROUGHOUT, MAINLY ON UPPER EXTREMITIES. SHE HAS A DRESSING IN PLACE ON HER L MIDDLE FINGER POST I&D. PER DOCUMENTATION DR. SMALL IS EVALUATING AND DOING DRESSING CHANGES, THERE ARE NO NURSING ORDERS FOR WOUND CARE. SHE IS A 1 ASSIST WITH GAITBELT AND WALKER TO BEDSIDE CHAIR AN RESTROOM. AMUBULATION IS WEAK. PAIN MANAGED WITH REPOSITIONING AND REST. HAS NORCO IN EMAR. PT IS RESTING IN BED AT THIS TIME, CALL LIGHT IN REACH, USES APPROPRIATELY, AND NOT SHOWING SIGNS OF DISTRESS.
[2022-09-29 19:39] VITALS: BP 103/64
--- NOTE | 2022-09-30 04:02 | NUR ---
Shift summery, pt resting in bed, pt out of bed with 1 assist and walker to br . Pt tolerated activity very well. Pt DRG changed to left middle finger and reapplyed treasure wrap to foot/ankle. Pt seemed to be resting well this night. Call light in reach.
[2022-09-30 04:36] VITALS: BP 133/73
[2022-09-30 08:02] VITALS: BP 128/85
[2022-09-30 15:49] VITALS: BP 119/67
--- NOTE | 2022-09-30 18:21 | NUR ---
SHIFT SUMMARY PT IS ALERT AND ORIENTED X4. EXPERIENCING MOD TO SEV PAIN. TREATED PER EMAR. NO ACUTE CHANGES THIS SHIFT. TREATED WOUND ORDERED. 1 PERSON ASSIST TO BEDSIDE COMMODE.
[2022-09-30 19:15] VITALS: BP 128/79
--- NOTE | 2022-10-01 03:38 | NUR ---
SHIFT SUMMERY, PT RESTING WELL THIS NIGHT, PT APPEARS TO BE VERY COMFORTABLE, DRG CHANGE DONE TO LEFT HAND MIDDLE FINGER. DRG CDI. CALL LIGHT IN REACH.
[2022-10-01 03:52] VITALS: BP 141/82
[2022-10-01 07:45] VITALS: BP 130/62
[2022-10-01 15:22] VITALS: BP 123/57
--- NOTE | 2022-10-01 18:36 | NUR ---
SHIFT SUMMARY NO ACUTE CHANGES THIS SHIFT. PT NEEDS PICC LINE BEFORE DISCHARGE. ALERT AND ORIENTED X4. ABLE TO AMBULATE WITH 1 PERSON STANDBY ASSIST.
[2022-10-01 20:14] VITALS: BP 102/58
[2022-10-02 04:11] VITALS: BP 107/62
--- NOTE | 2022-10-02 04:53 | NUR ---
SHIFT SUMMARY PT SITTING UP IN BED DURING BEDSIDE REPORT- LEFT MIDDLE FINGER BANDAGE IN PLACE, RIGHT ANKLE WRAPPED WITH JOHN BANDAGE- PT TOOK SCHEDULED RENTERIA MEDS WITHOUT COMPLICATIONS- BED LOW POSITION, CALL LIGHT WITHIN REACH AND USES APPROPRIATELY
[2022-10-02 14:46] VITALS: BP 111/58
--- NOTE | 2022-10-02 17:50 | NUR ---
SHIFT SUMMARY- PT IS A/O, PLESANT AND COOPERATIVE. SHE IS EATING AND DRINKING WELL. SHE HAD A PICC LINE PLACE THIS SHIFT. SHE IS AMBULATING TO THE RESTROOM. SHE RECIEDED DIURETICS THIS SHIFT. HER BED IS IN THE LOW POSITON AND CALL LIGHT IS WITIN JACEY.
[2022-10-02 21:04] VITALS: BP 114/64
[2022-10-03 04:33] VITALS: BP 112/60
--- NOTE | 2022-10-03 06:44 | NUR ---
Shift Summary Finger dressing changed at start of shift. No c/o pain or discomfort. Slept well t/o the night.
[2022-10-03 08:15] VITALS: BP 124/75
[2022-10-03] MEDS ORDERED: APHEN325 MG PO (11:41)
[2022-10-03] MEDS ORDERED: ELIQUIS5 M2 PO (11:41)
[2022-10-03] MEDS ORDERED: DAPTOMYCIN IV (11:42)
[2022-10-03] MEDS ORDERED: HYDR1TAB94 PO (11:43)
[2022-10-03] MEDS ORDERED: FURO20 PO (11:43)
[2022-10-03] MEDS ORDERED: VISBIOME 112.51 EACH PO (11:43)
[2022-10-03] MEDS ORDERED: NYSTOP15 GM TOP (13:02)
[2022-10-03 13:34] LABS: Influenza A, PCR NEGATIVE (NEGATIVE); Influenza B, PCR NEGATIVE (NEGATIVE); Resp Syncytial Virus, PCR NEGATIVE (NEGATIVE); SARS-Cov-2 (COVID-19) PCR, MMC NEGATIVE (NEGATIVE)
[2022-10-03 14:48] VITALS: BP 100/70
--- NOTE | 2022-10-03 15:50 | NUR ---
SHIFT SUMMARY PT A&OX4 AND IN PLEASENT MOOD T/O SHIFT, WAITING TRANSPORT AT THIS TIME. TOLERATING PO INTAKE. VSS. IND. R ANKLE WBAT. CALL LIGHT W/IN REACH. CONTACT FOR MRSA, DRESSING CHANGED PER ORDERS. PICC IN PLACE FOR 6-8 WEEK ABX.
--- NOTE | 2022-10-03 16:16 | NUR ---
DISCHARGE PT A&OX4, TRANSPORT PROVIDED. VSS. NO C/O PAIN. TOLERATING PO INTAKE WELL. REPORT CALLED INTO [facility], PLAN FOR 6-8 WEEK IV ABX TX, PICC IN PLACE.
== END 2022-10-03 16:20 | DRG 853 ==
LOC: ER 20:36 → ERHOLD 09-20 00:38 → MEDS 09-20 00:38 → ENPENDDIS 10-03 10:45 → MEDS 10-03 16:20
PROVIDERS: Family Medicine; Internal Medicine; Nurse Practitioner Acute Care; Orthopaedic Surgery; Pharmacist; Physician Assistant; Student in an Organized Health Care Education/Training Program; ADMIT Internal Medicine
PROC: 0L980ZZ Drainage of Left Hand Tendon, Open Approach (ICD-10-PCS; 2022-09-24)
PROC: 3E03329 Introduction of Other Anti-infective into Peripheral Vein, Percutaneous Approach (ICD-10-PCS; principal; 2022-09-24 08:00)
PROC: 0LB80ZZ Excision of Left Hand Tendon, Open Approach (ICD-10-PCS; 2022-09-27)
DX: A41.02 Sepsis due to Methicillin resistant Staphylococcus aureus (principal); G06.1 Intraspinal abscess and granuloma; L02.512 Cutaneous abscess of left hand; M65.842 Other synovitis and tenosynovitis, left hand; E11.9 Type 2 diabetes mellitus without complications; S93.401A Sprain of unspecified ligament of right ankle, initial encounter; I10 Essential (primary) hypertension; I48.91 Unspecified atrial fibrillation; M46.46 Discitis, unspecified, lumbar region; E03.9 Hypothyroidism, unspecified; L03.012 Cellulitis of left finger; Z20.822 Contact with and (suspected) exposure to COVID-19; S82.61XA Displaced fracture of lateral malleolus of right fibula, initial encounter for closed fracture; F32.A Depression, unspecified; G89.29 Other chronic pain; M46.47 Discitis, unspecified, lumbosacral region; Z91.038 Other insect allergy status; Z79.82 Long term (current) use of aspirin; Z79.84 Long term (current) use of oral hypoglycemic drugs; Z87.891 Personal history of nicotine dependence; Z87.59 Personal history of other complications of pregnancy, childbirth and the puerperium; Z98.61 Coronary angioplasty status; Z86.718 Personal history of other venous thrombosis and embolism; Z79.01 Long term (current) use of anticoagulants; Z79.890 Hormone replacement therapy; Z79.899 Other long term (current) drug therapy; W01.0XXA Fall on same level from slipping, tripping and stumbling without subsequent striking against object, initial encounter
CPT/HCPCS: 0241U; 36415; 36569; 71045; 71046; 72158; 73120; 73610; 80048; 80053; 80202; 81001; 82550; 82553; 82565; 82947; 83605; 84443; 84550; 85025; 85027; 85610; 85730; 87040; 87070; 87077; 87147; 87186; 87205; 93005; 93010; 93306; 94762; 96361; 96374; 96375; 97110; 97116; 97162; 97166; 97530; 97535; 99285-25; A9270; A9579; C1751; J0690; J0878; J1100; J1644; J2250; J2405; J2543; J2704; J3010; J3370; J7030; J7050

== ENCOUNTER 2022-10-10 21:02 | Inpatient (IN) | payer MEDICARE ==
[~2022-10-10] VITALS: Ht 175.3 cm; Wt 82.4 kg
[~2022-10-10 21:02] MED LIST changes: +APHEN325 MG PO; +DAPTOMYCIN IV; +ELIQUIS5 M2 PO; +FURO20 PO; +HYDR1TAB94 PO; +NYSTOP15 GM TOP; +VISBIOME 112.51 EACH PO
[2022-10-10 21:28] LABS: BASOPHILS ABSOLUTE AUTO 0.02 K/mm3 (0.00-0.23); BASOPHILS PERCENT AUTO 0 % (0-2); EOSINOPHILS ABSOLUTE AUTO 0.47 K/mm3 (0.00-0.68); EOSINOPHILS PERCENT AUTO 6 % (0-6); IMMATURE GRAN ABSOLUTE AUTO 0.03 K/mm3 (0.00-0.10); IMMATURE GRAN PERCENT AUTO 0 % (0-1); LYMPHOCYTES PERCENT AUTO 9 % (21-46); MONOCYTES ABSOLUTE AUTO 0.73 K/mm3 (0.16-1.47); MONOCYTES PERCENT AUTO 9 % (4-13); Mean Corpuscular HGB 29.2 pg (26.0-34.0); Mean Corpuscular HGB Conc 31.6 g/dL (31.5-36.5); Mean Corpuscular Volume 92 fL (80-100); Mean Platelet Volume 9.4 fL (9.1-12.4); NEUTROPHILS ABSOLUTE AUTO 5.88 K/mm3 (1.96-9.15); NEUTROPHILS PERCENT AUTO 75 % (41-73); Platelet Count 296 K/mm3 (150-400); RDW Coefficient Variation 15.3 % (11.7-14.2); RDW Standard Deviation 50.8 fL (35.1-46.3); Red Blood Cell Count 1.92 M/mm3 (3.80-5.20); White Blood Cell Count 7.83 K/mm3 (4.00-11.30)
[2022-10-10 21:32] LABS: Hematocrit 17.7 % (33.0-51.0)
[2022-10-10 21:33] LABS: Hemoglobin 5.6 g/dL (11.5-16.0)
[2022-10-10 21:44] LABS: Albumin, Blood 2.3 g/dL (3.4-5.0); Albumin/Globulin Ratio 0.5 (0.8-1.8); Bilirubin, Total 0.3 mg/dL (0.1-1.0); Bun/Creatinine Ratio 19.8 (12.0-20.0); Calcium, Blood 8.3 mg/dL (8.5-10.1); Creatinine, Blood 0.86 mg/dL (0.40-1.00); Globulin, Blood 4.2 g/dL (2.2-4.0); Potassium, Blood 3.2 mmol/L (3.5-5.5); Total Protein, Blood 6.5 g/dL (6.4-8.2)
[2022-10-11] VITALS (28 sets, daily range): BP systolic 94–125; BP diastolic 51–88
[2022-10-11 00:37] LABS: International Normalized Ratio 1.26; Prothrombin Time Results 13.1 Sec (9.7-11.5)
[2022-10-11 05:52] LABS: BASOPHILS ABSOLUTE AUTO 0.05 K/mm3 (0.00-0.23); BASOPHILS PERCENT AUTO 1 % (0-2); EOSINOPHILS ABSOLUTE AUTO 0.42 K/mm3 (0.00-0.68); EOSINOPHILS PERCENT AUTO 6 % (0-6); Hematocrit 20.5 % (33.0-51.0); Hemoglobin 6.7 g/dL (11.5-16.0); IMMATURE GRAN ABSOLUTE AUTO 0.04 K/mm3 (0.00-0.10); IMMATURE GRAN PERCENT AUTO 1 % (0-1); LYMPHOCYTES ABSOLUTE AUTO 0.68 K/mm3 (0.84-5.20); LYMPHOCYTES PERCENT AUTO 9 % (21-46); MONOCYTES ABSOLUTE AUTO 0.75 K/mm3 (0.16-1.47); MONOCYTES PERCENT AUTO 10 % (4-13); Mean Corpuscular HGB 29.5 pg (26.0-34.0); Mean Corpuscular HGB Conc 32.7 g/dL (31.5-36.5); Mean Corpuscular Volume 90 fL (80-100); Mean Platelet Volume 9.3 fL (9.1-12.4); NEUTROPHILS ABSOLUTE AUTO 5.67 K/mm3 (1.96-9.15); NEUTROPHILS PERCENT AUTO 75 % (41-73); Platelet Count 270 K/mm3 (150-400); RDW Standard Deviation 49.1 fL (35.1-46.3); Red Blood Cell Count 2.27 M/mm3 (3.80-5.20); White Blood Cell Count 7.61 K/mm3 (4.00-11.30)
[2022-10-11 05:55] LABS: Bun/Creatinine Ratio 21.6 (12.0-20.0); Calcium, Blood 8.2 mg/dL (8.5-10.1); Creatinine, Blood 0.74 mg/dL (0.40-1.00); Potassium, Blood 3.5 mmol/L (3.5-5.5)
--- NOTE | 2022-10-11 06:24 | NUR ---
SHIFT SUMMARY A/OX4, 1-2P ASSIST FOR TRANSFERS. BEDPAN USED FOR VOIDING. NO BM'S THIS SHIFT. SPO2 >92% ON RA. TELE SR 70S-80S, DENIES CHEST PAIN/PRESSURE. PRBC STILL INFUSING AT THIS TIME. PICC TO MEGHAN. VSS, NO ACUTE CHANGES AT THIS TIME. BED IN LOWEST POSITION WITH CALL LIGHT IN REACH. WILL CONTINUE TO MONITOR AND REPORT TO ONCOMING RN.
--- NOTE | 2022-10-11 07:47 | NUR ---
CALLED DR BERMEO- PT HAD A POST TRANSFUSION H&H ORDERED, HOWEVER IT WAS DRAWN BY LAB AT THE START OF THE SECOND UNIT. THE H&H DRAWN WILL NOT REFLECT BOTH UNITS THAT JUST COMPLETED. RECIEVED AN ORDER FOR A REPEAT H&H NOW POST TRANSFUSION.
[2022-10-11 08:55] LABS: Hematocrit 22.3 % (33.0-51.0); Hemoglobin 7.4 g/dL (11.5-16.0)
--- NOTE | 2022-10-11 16:29 | NUR ---
SHIFT SUMMARY PATIENT ADMITTED WITH DX OF GI BLEED. PATIENT RECIEVED 2 UNITS OF PRBC'S THAT COMPLETED AT START OF THIS SHIFT. PATIENT ALERT AND INTERACTIVE. PATIENT UP OUT OF BED TO VOID MULTIPLE TIMES AND UP TO CHAIR FOR MOBILITY AND REDUCE BACK DISCOMFORT. PATIENT NPO BECAUSE OF GI BLEED AND GI CONSULT. PATIENT HAS HAD NO STOOLS THIS SHIFT. PATIENT EAGER TO BE ABLE TO EAT AND DRINK BUT VERBALIZES UNDERSTANDING. BANDAGE OVER L MIDDLE FINGER DRY AND INTACT. 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 PICC LINE DRESSING CHANGED.
--- NOTE | 2022-10-11 17:13 | NUR ---
PATIENT TRASPORTED TO DAYSURGERY VIA GURNEY FOR UPPER ENDO.
--- NOTE | 2022-10-11 17:50 | NUR ---
TRIPLE LUMEN IV ACCESS IN LEFT INNER UPPER ARM. DIFFICULT TO FLUSH, NO INFILTRATION NOTED, PT DENIES PAIN AND GOOD BLOOD RETURN. DR. DYER AWARE. WILL PROCEDE WITH CURRENT IV ACCESS
--- NOTE | 2022-10-11 17:53 | NUR ---
10/11/22 [address] DYER
--- NOTE | 2022-10-11 18:43 | NUR ---
PATIENT RETURNED FROM DAY SURGERY POST UPPER ENDO. REPORTED PATIENT HAD 3 ULCERS, NO ACTIVE BLEEDING, ULCERATIONS CLIPPED. PATIENT AWAKE ON ARRIVAL TO ROOM. PATIENT REQUESTING FLUIDS. GAG PRESENT AND FLUIDS PROVIDED. PATIENT ABLE TO REMEMBER BEING INFORMED OF ULCERS AND CLIPPING.
--- NOTE | 2022-10-11 18:53 | NUR ---
PT RETURNED FROM PROCEDURE. TELE BOX WAS IN PLACE WHEN THE PT ARRIVED. CALLED SOAKING TANK WORKER TO CONFIRM THE BOX AND PT NAME, PT IS NOW BACK ON TLEMETRY MONITORING.
[2022-10-12 00:29] VITALS: BP 90/54
[2022-10-12 04:39] VITALS: BP 105/55
--- NOTE | 2022-10-12 06:02 | NUR ---
SUMMARY: NO ACUTE EVENTS OVERNIGHT. PATIENT STATES SHE WAS PASSING GAS, NO ABD PAIN BUT HAD MINOR CHRONIC PAIN IN BACK/HIPS. PATIENT AMBULATED UP 1X ASSIST. TOLERATED FULL LIQUID DIET. ON ROOM AIR.
[2022-10-12 07:41] VITALS: BP 108/64
[2022-10-12 08:41] LABS: Hematocrit 22.3 % (33.0-51.0); Hemoglobin 7.3 g/dL (11.5-16.0)
[2022-10-12 09:02] LABS: Percent Saturation 5.4 % (15.0-50.0)
[2022-10-12 11:26] LABS: Influenza A, PCR NEGATIVE (NEGATIVE); Influenza B, PCR NEGATIVE (NEGATIVE); Resp Syncytial Virus, PCR NEGATIVE (NEGATIVE); SARS-Cov-2 (COVID-19) PCR, MMC NEGATIVE (NEGATIVE)
[2022-10-12] MEDS ORDERED: DOCU100 PO ×2 (12:46)
[2022-10-12] MEDS ORDERED: FLUC200 PO ×2 (12:46)
[2022-10-12] MEDS ORDERED: PANT40 PO ×2 (12:46)
[2022-10-12] MEDS ORDERED: FERRLECIT IV ×2 (12:48)
[2022-10-12 15:39] VITALS: BP 117/79
--- NOTE | 2022-10-12 17:24 | NUR ---
SHIFT SUMMARY: NO ACUTE EVENTS. NO S/S OF CONTINUED BLEEDING, DID NOT HAVE BM TODAY. C/O PAIN IN BACK AND HIPS; MEDICATED PER EMAR WITH SOME RELIEF. NO EVENTS ON TELE, SR 70'S WITH PAC'S. TOLERATING FULL LIQUID DIET, WILL ADAT. MEGHAN PICC LINE RED LUMEN FLUSES WELL AND DRAWS BLOOD; DAS PORT FLUSHES BUT VERY SLUGGISH AND OTHER PORT DOES NOT FLUSH. DELAY IN D/C BACK TO [facility] FOR IV ABX, POSSIBLY TOMORROW.
[2022-10-12 19:07] VITALS: BP 103/54
[2022-10-13 04:42] VITALS: BP 100/68
--- NOTE | 2022-10-13 04:47 | NUR ---
FL[place]: NO ACUTE EVENTS OVERNIGHT. PATIENT AMBULATED UP TO RESTROOM WITH SBA. PLEASANT AND COOPERATIVE WITH ALL CARE. AOX4. CALL LIGHT IN REACH.
[2022-10-13 07:36] VITALS: BP 115/65
[2022-10-13 08:09] LABS: Hematocrit 23.2 % (33.0-51.0); Hemoglobin 7.4 g/dL (11.5-16.0)
--- NOTE | 2022-10-13 16:30 | NUR ---
Patient receiving IV ABX this morning, plan to discharge back to SNF. employee communications manager working on discharge. SNF will not accept patient back for IV therapy. Plan is to DC patient home & she will come to [facility] for IV ABX. employee communications manager set up appointment & rides. Patient discharge home today at 1615.
== END 2022-10-13 16:09 | disposition home or self-care (01) | DRG 378 ==
LOC: ER 21:02 → MEDS 21:03
PROVIDERS: Family Medicine; Internal Medicine; Student in an Organized Health Care Education/Training Program; ADMIT Student in an Organized Health Care Education/Training Program
PROC: 0W3P8ZZ Control Bleeding in Gastrointestinal Tract, Via Natural or Artificial Opening Endoscopic (ICD-10-PCS; principal; 2022-10-11 17:30)
PROC: 30233N1 Transfusion of Nonautologous Red Blood Cells into Peripheral Vein, Percutaneous Approach (ICD-10-PCS; 2022-10-13)
DX: K25.4 Chronic or unspecified gastric ulcer with hemorrhage (principal); B37.81 Candidal esophagitis; D62 Acute posthemorrhagic anemia; E87.6 Hypokalemia; M46.46 Discitis, unspecified, lumbar region; L03.012 Cellulitis of left finger; I48.91 Unspecified atrial fibrillation; E03.9 Hypothyroidism, unspecified; F41.9 Anxiety disorder, unspecified; E11.9 Type 2 diabetes mellitus without complications; I25.10 Atherosclerotic heart disease of native coronary artery without angina pectoris; R60.9 Edema, unspecified; G47.00 Insomnia, unspecified; K21.00 Gastro-esophageal reflux disease with esophagitis, without bleeding; D50.9 Iron deficiency anemia, unspecified; I10 Essential (primary) hypertension; B95.62 Methicillin resistant Staphylococcus aureus infection as the cause of diseases classified elsewhere; F32.A Depression, unspecified; Z20.822 Contact with and (suspected) exposure to COVID-19; J44.9 Chronic obstructive pulmonary disease, unspecified; K31.7 Polyp of stomach and duodenum; K31.89 Other diseases of stomach and duodenum; Z91.014 Allergy to mammalian meats; Z79.890 Hormone replacement therapy; Z79.01 Long term (current) use of anticoagulants; Z79.82 Long term (current) use of aspirin; Z79.899 Other long term (current) drug therapy; Z79.891 Long term (current) use of opiate analgesic; Z79.2 Long term (current) use of antibiotics; Z98.890 Other specified postprocedural states; Z87.891 Personal history of nicotine dependence; Z86.19 Personal history of other infectious and parasitic diseases; Z87.81 Personal history of (healed) traumatic fracture
CPT/HCPCS: 0241U; 36415; 36430; 36556; 80048; 80053; 82272; 82728; 83540; 83550; 85014; 85018; 85025; 85610; 85730; 86677; 86850; 86900; 86901; 86923; 93005; 93010; 96365-59; 96366; 96367; 96375-59; 96376; 99284-25; A9270; C1751; C9113; G0378; J0878; J2001; J2704; J2916; J3480; J7030; J7120; P9016

== ENCOUNTER 2022-10-15 06:19 | Day surgery (SDC) | payer MEDICARE ==
[~2022-10-15 06:19] MED LIST changes: +DOCU100 PO; +FERRLECIT IV; +FLUC200 PO; +PANT40 PO
[2022-10-15 09:55] VITALS: BP 124/61
== END 2022-10-15 11:35 | disposition home or self-care (01) ==
LOC: ATC 06:19
DX: M46.40 Discitis, unspecified, site unspecified (principal); I10 Essential (primary) hypertension; E03.9 Hypothyroidism, unspecified; F32.A Depression, unspecified; I48.91 Unspecified atrial fibrillation; Z95.5 Presence of coronary angioplasty implant and graft; Z87.891 Personal history of nicotine dependence; A49.02 Methicillin resistant Staphylococcus aureus infection, unspecified site; K21.9 Gastro-esophageal reflux disease without esophagitis
CPT/HCPCS: 96365; 96367; J0878; J2916

== ENCOUNTER 2022-10-16 03:19 | Day surgery (SDC) | payer MEDICARE ==
[2022-10-16 10:15] VITALS: BP 122/61
== END 2022-10-16 11:51 | disposition home or self-care (01) ==
LOC: ATC 03:19
DX: M46.40 Discitis, unspecified, site unspecified (principal); A49.02 Methicillin resistant Staphylococcus aureus infection, unspecified site; R78.81 Bacteremia; I10 Essential (primary) hypertension; Z91.038 Other insect allergy status; Z91.048 Other nonmedicinal substance allergy status
CPT/HCPCS: 96365; 96368; J0878; J2916

== ENCOUNTER 2022-10-18 03:00 | Day surgery (SDC) | payer MEDICARE ==
[2022-10-18 10:33] VITALS: BP 128/69
== END 2022-10-18 11:02 | disposition home or self-care (01) ==
LOC: ATC 03:00
DX: M46.40 Discitis, unspecified, site unspecified (principal); A49.02 Methicillin resistant Staphylococcus aureus infection, unspecified site; R78.81 Bacteremia; I10 Essential (primary) hypertension; Z91.048 Other nonmedicinal substance allergy status
CPT/HCPCS: 96365; J0878; J2916

== ENCOUNTER 2022-10-19 02:55 | Day surgery (SDC) | payer MEDICARE ==
[2022-10-19 10:52] VITALS: BP 134/75
== END 2022-10-19 11:19 | disposition home or self-care (01) ==
LOC: ATC 02:55
DX: M46.40 Discitis, unspecified, site unspecified (principal); I10 Essential (primary) hypertension; E03.9 Hypothyroidism, unspecified; I48.91 Unspecified atrial fibrillation; K21.9 Gastro-esophageal reflux disease without esophagitis; Z87.891 Personal history of nicotine dependence; Z79.82 Long term (current) use of aspirin; Z79.01 Long term (current) use of anticoagulants; Z79.899 Other long term (current) drug therapy
CPT/HCPCS: 96365; J0878

== ENCOUNTER 2022-10-21 06:04 | Day surgery (SDC) | payer MEDICARE ==
[2022-10-21 10:11] VITALS: BP 122/63
== END 2022-10-21 10:44 | disposition home or self-care (01) ==
LOC: ATC 06:04
DX: M46.40 Discitis, unspecified, site unspecified (principal); I10 Essential (primary) hypertension; E03.9 Hypothyroidism, unspecified; I48.91 Unspecified atrial fibrillation; K21.9 Gastro-esophageal reflux disease without esophagitis; Z87.891 Personal history of nicotine dependence; Z91.038 Other insect allergy status; Z79.01 Long term (current) use of anticoagulants; Z79.890 Hormone replacement therapy; Z79.899 Other long term (current) drug therapy
CPT/HCPCS: J0878

== ENCOUNTER 2022-10-22 02:44 | Day surgery (SDC) | payer MEDICARE ==
[2022-10-22 09:52] VITALS: BP 132/75
== END 2022-10-22 10:23 | disposition home or self-care (01) ==
LOC: ATC 02:44
DX: M46.40 Discitis, unspecified, site unspecified (principal); B95.62 Methicillin resistant Staphylococcus aureus infection as the cause of diseases classified elsewhere; R78.81 Bacteremia; I10 Essential (primary) hypertension; E03.9 Hypothyroidism, unspecified; I48.91 Unspecified atrial fibrillation; Z87.891 Personal history of nicotine dependence; Z91.038 Other insect allergy status; Z79.01 Long term (current) use of anticoagulants; Z79.890 Hormone replacement therapy; Z79.899 Other long term (current) drug therapy
CPT/HCPCS: J0878

== ENCOUNTER 2022-11-06 01:18 | Day surgery (SDC) | payer MEDICARE ==
[2022-11-06 10:27] VITALS: BP 104/52
== END 2022-11-06 10:48 | disposition home or self-care (01) ==
LOC: ATC 01:18
DX: R78.81 Bacteremia (principal); B95.62 Methicillin resistant Staphylococcus aureus infection as the cause of diseases classified elsewhere; M46.40 Discitis, unspecified, site unspecified; I10 Essential (primary) hypertension; E03.9 Hypothyroidism, unspecified; I48.91 Unspecified atrial fibrillation; F51.04 Psychophysiologic insomnia; K21.9 Gastro-esophageal reflux disease without esophagitis; Z87.891 Personal history of nicotine dependence; Z91.038 Other insect allergy status; Z79.82 Long term (current) use of aspirin; Z79.01 Long term (current) use of anticoagulants; Z79.899 Other long term (current) drug therapy; Z79.890 Hormone replacement therapy
CPT/HCPCS: 96365; J0878

== ENCOUNTER 2022-11-06 16:31 | Inpatient (IN) | payer OTHER, MEDICARE ==
[~2022-11-06] VITALS: Ht 175.3 cm; Wt 73.9 kg
[2022-11-06 19:16] LABS: BASOPHILS ABSOLUTE AUTO 0.05 K/mm3 (0.00-0.23); BASOPHILS PERCENT AUTO 1 % (0-2); EOSINOPHILS ABSOLUTE AUTO 0.08 K/mm3 (0.00-0.68); EOSINOPHILS PERCENT AUTO 1 % (0-6); Hematocrit 25.7 % (33.0-51.0); IMMATURE GRAN ABSOLUTE AUTO 0.06 K/mm3 (0.00-0.10); IMMATURE GRAN PERCENT AUTO 1 % (0-1); LYMPHOCYTES ABSOLUTE AUTO 0.58 K/mm3 (0.84-5.20); LYMPHOCYTES PERCENT AUTO 6 % (21-46); MONOCYTES ABSOLUTE AUTO 0.72 K/mm3 (0.16-1.47); MONOCYTES PERCENT AUTO 7 % (4-13); Mean Corpuscular HGB 27.6 pg (26.0-34.0); Mean Corpuscular HGB Conc 31.1 g/dL (31.5-36.5); Mean Corpuscular Volume 89 fL (80-100); Mean Platelet Volume 8.7 fL (9.1-12.4); NEUTROPHILS PERCENT AUTO 85 % (41-73); Platelet Count 437 K/mm3 (150-400); RDW Coefficient Variation 15.5 % (11.7-14.2); RDW Standard Deviation 49.8 fL (35.1-46.3); White Blood Cell Count 9.69 K/mm3 (4.00-11.30)
[2022-11-06 19:47] LABS: Albumin, Blood 2.3 g/dL (3.4-5.0); Albumin/Globulin Ratio 0.5 (0.8-1.8); Bilirubin, Total 0.3 mg/dL (0.1-1.0); Bun/Creatinine Ratio 23.9 (12.0-20.0); Calcium, Blood 8.7 mg/dL (8.5-10.1); Creatinine, Blood 1.59 mg/dL (0.40-1.00); Globulin, Blood 4.6 g/dL (2.2-4.0); Potassium, Blood 3.3 mmol/L (3.5-5.5); Total Protein, Blood 6.9 g/dL (6.4-8.2)
[2022-11-07 02:38] VITALS: BP 125/63
[2022-11-07 04:45] LABS: BASOPHILS ABSOLUTE AUTO 0.05 K/mm3 (0.00-0.23); BASOPHILS PERCENT AUTO 1 % (0-2); EOSINOPHILS ABSOLUTE AUTO 0.07 K/mm3 (0.00-0.68); EOSINOPHILS PERCENT AUTO 1 % (0-6); Hematocrit 26.5 % (33.0-51.0); Hemoglobin 8.5 g/dL (11.5-16.0); IMMATURE GRAN ABSOLUTE AUTO 0.06 K/mm3 (0.00-0.10); IMMATURE GRAN PERCENT AUTO 1 % (0-1); LYMPHOCYTES ABSOLUTE AUTO 0.54 K/mm3 (0.84-5.20); LYMPHOCYTES PERCENT AUTO 5 % (21-46); MONOCYTES ABSOLUTE AUTO 0.82 K/mm3 (0.16-1.47); MONOCYTES PERCENT AUTO 8 % (4-13); Mean Corpuscular HGB 28.5 pg (26.0-34.0); Mean Corpuscular HGB Conc 32.1 g/dL (31.5-36.5); Mean Corpuscular Volume 89 fL (80-100); Mean Platelet Volume 8.7 fL (9.1-12.4); NEUTROPHILS ABSOLUTE AUTO 8.45 K/mm3 (1.96-9.15); NEUTROPHILS PERCENT AUTO 85 % (41-73); Platelet Count 389 K/mm3 (150-400); RDW Coefficient Variation 15.6 % (11.7-14.2); RDW Standard Deviation 50.5 fL (35.1-46.3); Red Blood Cell Count 2.98 M/mm3 (3.80-5.20); White Blood Cell Count 9.99 K/mm3 (4.00-11.30)
[2022-11-07 05:51] LABS: Albumin, Blood 2.1 g/dL (3.4-5.0); Albumin/Globulin Ratio 0.5 (0.8-1.8); Bilirubin, Total 0.3 mg/dL (0.1-1.0); Bun/Creatinine Ratio 26.2 (12.0-20.0); Calcium, Blood 8.4 mg/dL (8.5-10.1); Creatinine, Blood 1.07 mg/dL (0.40-1.00); Globulin, Blood 4.6 g/dL (2.2-4.0); Potassium, Blood 3.3 mmol/L (3.5-5.5); Total Protein, Blood 6.7 g/dL (6.4-8.2)
[2022-11-07 07:16] VITALS: BP 109/58
[2022-11-07 15:29] VITALS: BP 120/66
[2022-11-07 19:42] VITALS: BP 120/69
[2022-11-08 05:26] VITALS: BP 113/67
--- NOTE | 2022-11-08 06:06 | NUR ---
SHIFT SUMMARY VSS. PT SLEPT WELL T/O THE NIGHT. TOLLERATING PO INTAKE W/O N/V. MEDICATED FOR PAIN WITH PRN'S, PT STILL ENDORSES EXTREME LOWER BACK PAIN. PT REPORTS TROUBLE AMBULATING D/T EXTREME LOWER BACK PAIN. [place] [facility] [place] PLAN FOR PAIN CONTROL, SNF VS HOME. THE PATIENT IS CURRENTLY SLEEPING, IN NO DISTRESS, CALL LIGHT IN REACH
[2022-11-08 07:11] VITALS: BP 109/63
[2022-11-08 09:29] LABS: Bun/Creatinine Ratio 22.6 (12.0-20.0); Calcium, Blood 8.4 mg/dL (8.5-10.1); Creatinine, Blood 0.71 mg/dL (0.40-1.00); Potassium, Blood 3.8 mmol/L (3.5-5.5)
[2022-11-08] MEDS ORDERED: FLUC200 PO (13:29)
[2022-11-08] MEDS ORDERED: MULVITA PO (13:30)
[2022-11-08] MEDS ORDERED: C COMPLEX1000 M1 PO (13:30)
[2022-11-08] MEDS ORDERED: OMEGA-3 FISH O1 EA13 PO (13:31)
[2022-11-08 15:59] VITALS: BP 130/72
[2022-11-08 19:19] VITALS: BP 117/75
[2022-11-09 04:17] VITALS: BP 113/70
--- NOTE | 2022-11-09 04:38 | NUR ---
SHIFT SUMMARY NO ACUTE CHANGES NOTED DURING SHIFT. PT ALERT AND ORIENTED, CALLS APPROPRIATELY. PT REMAINS ON RA, SBA WITH FWW TO BATHROOM AND CHAIR. CONTINUED PELVIC PAIN NOTED, MEDICATED MULTIPLE TIMES PER EMAR. PT PENDING PLACEMENT. WILL CONTINUE TO MONITOR. CALL LIGHT WITHIN REACH.
[2022-11-09 06:15] LABS: Bun/Creatinine Ratio 15.1 (12.0-20.0); Calcium, Blood 8.6 mg/dL (8.5-10.1); Creatinine, Blood 0.73 mg/dL (0.40-1.00); Potassium, Blood 4.3 mmol/L (3.5-5.5)
[2022-11-09 07:26] VITALS: BP 137/68
[2022-11-09 15:44] VITALS: BP 128/70
--- NOTE | 2022-11-09 17:00 | NUR ---
SHIFT SUMMARY- VSS. APPETITE OK. ON RA. TELE NSR, NO ACUTE CHANGES. PT REPORTS PAIN IN LOWER BACL AREA AT ABOUT 7-9 BEFORE NOON. OT/PT SESSIONS IN AFTERNOON. PT REPORTING 10 LEVEL PAIN IN BACKAFTER LAYING DOWN FOR AN HOUR. MEDICATED PER EMAR. WILL CONTINUE TO MONITOR. UP IN CHAIR NOW. HEAT THERAPY FOR BACK. 1 ASSIST FFW TO BATHROOM. PT EDUCATED ON FIRE SAFETY. NO IGNITIONS RESOURCE IN ROOM, PT STATES NONE. WILL CONTINUE HOURLY ROUNDING FOR SAFETY.
[2022-11-09 19:11] VITALS: BP 107/64
--- NOTE | 2022-11-10 04:15 | NUR ---
SHIFT SUMMARY NO ACUTE CHANGES NOTED DURING SHIFT.PT ALERT AND ORIENTED, CALLS APPROPRIATELY. PT REMAINS ON RA, SBA WITH FWW TO BATHROOM. PT MEDICATED MULTIPLE TIMES FOR PAIN PER EMAR. PENDING PLACEMENT TO FACILITY. WILL CONTINUE TO MONITOR. CALL LIGHT WITHIN REACH.
[2022-11-10 04:16] VITALS: BP 109/60
--- NOTE | 2022-11-10 04:57 | NUR ---
MEDICATION ADMINISTERED SYNTHROID .088MG PO, AND DILAUDID 1MG IV ADMINISTERED TO PT AT 0430. COMPUTER ERROR D/T GENERATOR TESTING, UNABLE TO RESCAN MEDICATIONS AND DOCUMENT ADMINISTRATION.
[2022-11-10 07:34] VITALS: BP 112/67
[2022-11-10 10:40] LABS: Influenza A, PCR NEGATIVE (NEGATIVE); Influenza B, PCR NEGATIVE (NEGATIVE); Resp Syncytial Virus, PCR NEGATIVE (NEGATIVE); SARS-Cov-2 (COVID-19) PCR, MMC NEGATIVE (NEGATIVE)
--- NOTE | 2022-11-10 12:14 | NUR ---
REPORT TO ANKIT SINGH AT [facility]
--- NOTE | 2022-11-10 12:47 | NUR ---
PATIENT DISCHARGED HOME, IGNITION AND FIRE EDUCATION GIVEN, LEFT VIA WC, DENIED FURTHER QUESTIONS REGARDING DISCHARGE NEEDS AND FOLLOW UP
== END 2022-11-10 12:46 | DRG 684 ==
LOC: ER 16:31 → MEDS 16:32 → ENPENDDIS 11-10 12:15 → MEDS 11-10 12:46
PROVIDERS: Family Medicine; Internal Medicine; Student in an Organized Health Care Education/Training Program; ADMIT Internal Medicine
DX: N17.9 Acute kidney failure, unspecified (principal); E03.9 Hypothyroidism, unspecified; I48.91 Unspecified atrial fibrillation; F32.A Depression, unspecified; E86.0 Dehydration; E87.6 Hypokalemia; G89.29 Other chronic pain; M19.90 Unspecified osteoarthritis, unspecified site; J40 Bronchitis, not specified as acute or chronic; K21.9 Gastro-esophageal reflux disease without esophagitis; G47.00 Insomnia, unspecified; E11.22 Type 2 diabetes mellitus with diabetic chronic kidney disease; I12.9 Hypertensive chronic kidney disease with stage 1 through stage 4 chronic kidney disease, or unspecified chronic kidney disease; M46.40 Discitis, unspecified, site unspecified; N18.2 Chronic kidney disease, stage 2 (mild); Z20.822 Contact with and (suspected) exposure to COVID-19; F41.9 Anxiety disorder, unspecified; W01.198A Fall on same level from slipping, tripping and stumbling with subsequent striking against other object, initial encounter; Z91.038 Other insect allergy status; Z79.890 Hormone replacement therapy; Z79.899 Other long term (current) drug therapy; Z79.01 Long term (current) use of anticoagulants; Z79.891 Long term (current) use of opiate analgesic; Z98.890 Other specified postprocedural states; Z98.61 Coronary angioplasty status; Z87.891 Personal history of nicotine dependence; Z86.14 Personal history of Methicillin resistant Staphylococcus aureus infection; Z86.19 Personal history of other infectious and parasitic diseases
CPT/HCPCS: 0241U; 36415; 70450; 72080; 73502; 74177; 76830; 76856; 80048; 80053; 82550; 85025; 96361; 96365; 96374; 96375; 96376; 97110; 97116; 97162; 97166; 97530; 97535; 99285-25; A9270; G0378; J0878; J1170; J2270; J7030; J7512; Q9967

== ENCOUNTER 2022-11-29 12:38 | Inpatient (IN) | payer MEDICARE ==
[~2022-11-29] VITALS: Ht 175.3 cm; Wt 73.5 kg
[~2022-11-29 12:38] MED LIST changes: +C COMPLEX1000 M1 PO; +MULVITA PO; +OMEGA-3 FISH O1 EA13 PO
[2022-11-29 13:49] LABS: BASOPHILS ABSOLUTE AUTO 0.05 K/mm3 (0.00-0.23); BASOPHILS PERCENT AUTO 0 % (0-2); EOSINOPHILS ABSOLUTE AUTO 0.15 K/mm3 (0.00-0.68); EOSINOPHILS PERCENT AUTO 1 % (0-6); IMMATURE GRAN PERCENT AUTO 1 % (0-1); LYMPHOCYTES ABSOLUTE AUTO 0.75 K/mm3 (0.84-5.20); LYMPHOCYTES PERCENT AUTO 6 % (21-46); MONOCYTES ABSOLUTE AUTO 0.85 K/mm3 (0.16-1.47); MONOCYTES PERCENT AUTO 7 % (4-13); Mean Corpuscular HGB 26.6 pg (26.0-34.0); Mean Corpuscular HGB Conc 30.5 g/dL (31.5-36.5); Mean Corpuscular Volume 87 fL (80-100); NEUTROPHILS ABSOLUTE AUTO 10.21 K/mm3 (1.96-9.15); NEUTROPHILS PERCENT AUTO 84 % (41-73); Platelet Count 453 K/mm3 (150-400); RDW Standard Deviation 53.1 fL (35.1-46.3); Red Blood Cell Count 1.99 M/mm3 (3.80-5.20); White Blood Cell Count 12.11 K/mm3 (4.00-11.30)
[2022-11-29 13:53] LABS: Hematocrit 17.4 % (33.0-51.0); Hemoglobin 5.3 g/dL (11.5-16.0)
[2022-11-29 14:08] LABS: Albumin/Globulin Ratio 0.4 (0.8-1.8); Bilirubin, Total 0.2 mg/dL (0.1-1.0); Bun/Creatinine Ratio 24.6 (12.0-20.0); Calcium, Blood 8.6 mg/dL (8.5-10.1); Creatinine, Blood 0.81 mg/dL (0.40-1.00); Globulin, Blood 4.9 g/dL (2.2-4.0); Potassium, Blood 3.7 mmol/L (3.5-5.5); Total Protein, Blood 6.9 g/dL (6.4-8.2)
[2022-11-29] MEDS ORDERED: FAMO20 PO (16:17)
[2022-11-29 18:41] VITALS: BP 135/76
[2022-11-29] MEDS ORDERED: PANT40 (18:48)
[2022-11-29 20:55] LABS: Hemoglobin 7.6 g/dL (11.5-16.0)
[2022-11-30] VITALS (9 sets, daily range): BP systolic 93–128; BP diastolic 54–70
[2022-11-30 05:14] LABS: Hematocrit 20.8 % (33.0-51.0); Hemoglobin 6.8 g/dL (11.5-16.0); Mean Corpuscular HGB 26.9 pg (26.0-34.0); Mean Corpuscular HGB Conc 32.7 g/dL (31.5-36.5); Mean Platelet Volume 9.1 fL (9.1-12.4); NRBC ABSOLUTE 0.02 K/mm3 (0.00-0.02); NRBC Auto 0.2 /100 WBC (0.0-0.2); Platelet Count 454 K/mm3 (150-400); RDW Coefficient Variation 17.8 % (11.7-14.2); RDW Standard Deviation 52.9 fL (35.1-46.3); Red Blood Cell Count 2.53 M/mm3 (3.80-5.20); White Blood Cell Count 11.54 K/mm3 (4.00-11.30)
[2022-11-30 05:22] LABS: Mean Corpuscular Volume 82 fL (80-100)
--- NOTE | 2022-11-30 05:23 | NUR ---
SHIFT SUMMARY. SHIFT HAS BEEN UNREMARKABLE. PAIN WELL MANAGED ON CURRENT MEDICATION REGIMEN. AOX4, PLEASANT, COOPERATIVE WITH CARE. PT HAS SLEPT THROUGH MUCH OF SHIFT AFTER 2100 MEDICATION ADMINISTRATION AND SHIFT ASSESSMENT. CALLS APPROPRIATELY. NO NEW MANIFESTATIONS OR SYMPTOMS THIS SHIFT. BED LOCKED IN LOWEST POSITION. CALL LIGHT LEFT WITHIN REACH.
[2022-11-30 06:08] LABS: Bun/Creatinine Ratio 19.8 (12.0-20.0); Calcium, Blood 8.5 mg/dL (8.5-10.1); Creatinine, Blood 0.76 mg/dL (0.40-1.00); Potassium, Blood 4.2 mmol/L (3.5-5.5)
[2022-11-30 08:50] LABS: Source, Urine Voided
[2022-11-30 08:53] LABS: Appearance, Urine Clear (Clear); Bilirubin, Urine Neg (Neg); Blood, Urine Neg (Neg); Color, Urine Yellow (P-Yellow); Glucose Qualitative, Urine Neg (Neg); Ketones, Urine Neg (Neg); Leukocyte Esterase, Urine Neg (Neg); Nitrite, Urine Neg (Neg); Protein, Urine Neg (Neg); Urobilinogen, Urine NORM (Normal)
--- NOTE | 2022-11-30 16:42 | NUR ---
SHIFT SUMMARY PT AOX4, SBA C FWW AND GB TO THE BSC. PT IS IN PAIN, MEDICATED PER THE EMAR. PT HAS ALSO C/O CONSTIPATION, MEDICATED PER THE EMAR. PT HAD AN MRI DONE TODAY. PT WILL ALSO RECEIVED A UNIT OF BLOOD. PT HAS A PG MEGHAN PLACED TODAY BY THE CHARGE. FIRE SAFETY PROTOCOLS AND PROCEDURES REVIEWED WITH THE PT. PT VERBALIZED UNDERSTANDING. NO IGNITION SOURCES IDENTIFIED. CALL LIGHT WITHIN REACH, BED IN THE LOWEST POSITION. WILL REPORT TO ONCOMING NURSE.
--- NOTE | 2022-11-30 16:59 | NUR ---
Patient is lying in bed and alert. She immediately tells me about her medical problems and the of her spouse two days prior. She is very tearful at times. I provide grief support as we talk about bereavement and explore coping strategies, resources, and family/friend support. 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 Patient showed signs of being comforted and responded well to the therapeutic listening and calming presence given.
[2022-11-30 22:53] LABS: Hematocrit 22.8 % (33.0-51.0); Hemoglobin 7.3 g/dL (11.5-16.0)
[2022-12-01 02:28] VITALS: BP 132/67
[2022-12-01 04:57] LABS: Hematocrit 22.5 % (33.0-51.0); Hemoglobin 7.2 g/dL (11.5-16.0); Mean Corpuscular HGB 26.1 pg (26.0-34.0); Mean Corpuscular Volume 82 fL (80-100); Mean Platelet Volume 8.9 fL (9.1-12.4); Platelet Count 421 K/mm3 (150-400); RDW Coefficient Variation 17.3 % (11.7-14.2); RDW Standard Deviation 51.1 fL (35.1-46.3); Red Blood Cell Count 2.76 M/mm3 (3.80-5.20); White Blood Cell Count 9.29 K/mm3 (4.00-11.30)
[2022-12-01 05:18] LABS: Bun/Creatinine Ratio 14.7 (12.0-20.0); Calcium, Blood 8.3 mg/dL (8.5-10.1); Creatinine, Blood 0.75 mg/dL (0.40-1.00); Potassium, Blood 3.8 mmol/L (3.5-5.5)
--- NOTE | 2022-12-01 05:29 | NUR ---
SUMMARY- NO ACUTE EVENTS OVERNIGHT. PT IS NEEDING OXY 5MG Q 6 HRS FOR BACK/R HIP PAIN. X1 ASSIST W/WALKER AND GAITBELT TO BSC. NO BM THIS SHIFT. RN ENSURED FIRE SAFETY EVERY HOUR WITH ROUNDS.
[2022-12-01 07:15] VITALS: BP 112/75
[2022-12-01 13:56] LABS: Hematocrit 25.4 % (33.0-51.0); Hemoglobin 8.2 g/dL (11.5-16.0)
[2022-12-01 16:54] VITALS: BP 123/64
--- NOTE | 2022-12-01 17:13 | NUR ---
SHIFT SUMMARY Pt remains A&O x3 this shift. VSS. Pain managed with current regime. Increased pain when getting oob to bsc. Resp even nonlabored on RA. Small BM this am, dark brown in color. Blood cultures obtained today. Pt resting comfortably in bed. Will continue to monitor this shift.
[2022-12-02 03:34] VITALS: BP 118/74
--- NOTE | 2022-12-02 05:04 | NUR ---
SUMMARY- ACUTE EVENTS THIS SHIFT. PT'S PAIN MODERATELY CONTROLLED WITH EMAR MEDS. FENTANYL GIVEN ONCE THIS SHIFT AND PT REPORTED IT "BARELY HELPED." PT UNSURE IF THE FLEXERIL IS HELPING. X1 ASSIST WITH WALKER AND GAITBELT TO THE BSC. RN ENSURED FIRE SAFETY EVERY HOUR WITH ROUNDS.
[2022-12-02 07:37] VITALS: BP 123/67
[2022-12-02 15:08] VITALS: BP 123/60
--- NOTE | 2022-12-02 18:19 | NUR ---
SHIFT SUMMARY Pt remains A&O this shift. Pain managed with po meds. VSS. Resp even nonlabored on RA. BM today. Voiding without difficulty. Tolerating diet. Repeat cultures obtained today. No further needs id or verbalized at this time. Will continue to monitor this shift.
[2022-12-02 19:50] VITALS: BP 126/65
[2022-12-03 04:08] VITALS: BP 122/69
[2022-12-03 05:09] LABS: Hematocrit 23.6 % (33.0-51.0); Hemoglobin 7.5 g/dL (11.5-16.0); Mean Corpuscular HGB 26.1 pg (26.0-34.0); Mean Corpuscular HGB Conc 31.8 g/dL (31.5-36.5); Mean Corpuscular Volume 82 fL (80-100); Mean Platelet Volume 9.2 fL (9.1-12.4); Platelet Count 377 K/mm3 (150-400); RDW Coefficient Variation 16.8 % (11.7-14.2); Red Blood Cell Count 2.87 M/mm3 (3.80-5.20); White Blood Cell Count 10.67 K/mm3 (4.00-11.30)
--- NOTE | 2022-12-03 05:18 | NUR ---
SUMMARY- NO ACUTE EVENTS THIS SHIFT. PT'S PAIN MODERATELY CONTROLLED WITH PAIN MEDS. SBA WITH WALKER AND A GAITBELT. RN ENSURED FIRE SAFETY EVERY HOUR WITH ROUNDS.
[2022-12-03 06:01] LABS: Bun/Creatinine Ratio 15.5 (12.0-20.0); Calcium, Blood 8.6 mg/dL (8.5-10.1); Creatinine, Blood 0.64 mg/dL (0.40-1.00); Potassium, Blood 3.4 mmol/L (3.5-5.5)
[2022-12-03 07:50] VITALS: BP 125/63
[2022-12-03 15:40] VITALS: BP 136/70
--- NOTE | 2022-12-03 17:10 | NUR ---
SHIFT SUMMARY Pt remains A&O this shift. VSS,afebrile. Pain managed with current regime. Increased pain getting up to BSC. Resp even nonlabored on RA. Tolerating diet and fluids. Voiding without difficulty. IV antibiotics administered as ordered. No further needs id or verbalized at this time. Will continue to monitor this shift.
[2022-12-03 19:44] VITALS: BP 125/63
[2022-12-04 04:17] VITALS: BP 131/63
[2022-12-04 05:19] LABS: Hematocrit 25.4 % (33.0-51.0); Hemoglobin 7.9 g/dL (11.5-16.0)
--- NOTE | 2022-12-04 05:20 | NUR ---
END OF SHIFT SUMMARY PT STATED SHE'S FEELING BETTER THAN YESTERDAY. PT TRANFERS WITH 1P ASSIST TO BSC. PT CALLS APPROPRIATELY, PT ABLE TO MAKE NEEDS KNOWN. PAIN IS BEING MANAGED WITH PRN PAIN MEDICATION OxyCODONE AND FLEXERIL. PAIN IS DESCRIBED SHARP STABBING PAIN THAT IS LOCATED IN THELOWER BACK AND RADIATES TO R&L HIPS. PAIN OCCURS MAINLY WITH TRANSFERS AND REPOSITIONING IN BED. H&H HAS IMPROVED. CALL LIGHT WITHIN REACH, WCTM.
[2022-12-04 05:43] LABS: Bun/Creatinine Ratio 12.8 (12.0-20.0); Calcium, Blood 8.5 mg/dL (8.5-10.1); Creatinine, Blood 0.63 mg/dL (0.40-1.00); Potassium, Blood 3.4 mmol/L (3.5-5.5)
[2022-12-04 07:39] VITALS: BP 128/64
[2022-12-04 07:43] LABS: Percent Saturation 9.2 % (15.0-50.0)
--- NOTE | 2022-12-04 12:49 | NUR ---
Spiritual care visit conducted. Patient is lying in bed and alert. She continues to have back muscle spasms that cause her pain periodically. She states that she hassan been given "muscle relaxers" which should help eventually. She then talks about the of her , the plusses and minuses of her support system and the the long months prior to her spouses (caregiving was challenging). We talk about her Pentec[employer]al amy which, for the patient, is not about going to latter day but about connecting to God in a real and personal way. We also talk about her cat that she misses and fears her family is not taking care of. (Family members that she talks consist of her son, Anup who lives out of state and her spouse, Uri's son, Jose Miguel, and dtr in law, Thu, who live here in town). I provide grief support, gentle international student counselor and prayer. Patient responded very well and showed signs of being comforted in her grief and inspired in her resolve to keep pushing toward health.
[2022-12-04 16:37] VITALS: BP 140/77
--- NOTE | 2022-12-04 18:40 | NUR ---
SHIFT SUMMARY PT AXO X3-4 BUT [place] AND FORGETFUL BUT COOPERATIVE WITH CARE. VSS. NO ACUTE CHANGES THIS SHIFT. PT DENIES IGNITION SOURCES. IV DC'D AND BELONGINGS RETURNED. AWAITING TRANSPORT TO [facility] AT THIS TIME. UP WITH 1 ASSIST FWW AND GB. DENIES PAIN, SOB AND NV. TELE DC'D WELL. ALL DISCHARGE INSTRUCTIONS DISCUSSED, ALL QUESTIONS ANSWERED. PT'S SPOUSE AT BEDSIDE AT THIS TIME.
--- NOTE | 2022-12-04 18:44 | NUR ---
SHIFT SUMMARY PT AXO, PLEASANT AND COOPERATIVE WITH CARE THOUGH FORGETFUL. PT IN PAIN 7-10/10 THROUGHOUT THE DAY DESPITE BEING MEDICATED PER EMAR. REPOSITIONING AND NONPHARM INTERVENTIONS UTILIZED. PT STAND PIVOT TRANSFER VERY SLOWLY TO [facility] [place] TO [place]. IV PATENT AND INFUSING PER EMAR. PT DENIES IGNITION SOURCES. PT DENIES SOB AND NV. MEDICATED FOR CONSTIPATION. VSS. BED IN LOW POSITION, CALL LIGHT WITHIN REACH.
[2022-12-05 04:46] VITALS: BP 125/74
[2022-12-05 07:46] VITALS: BP 119/81
[2022-12-05 08:14] LABS: Hematocrit 25.5 % (33.0-51.0)
[2022-12-05 08:43] LABS: Bun/Creatinine Ratio 11.1 (12.0-20.0); Calcium, Blood 8.4 mg/dL (8.5-10.1); Creatinine, Blood 0.63 mg/dL (0.40-1.00); Potassium, Blood 3.7 mmol/L (3.5-5.5)
--- NOTE | 2022-12-05 11:03 | NUR ---
AM NOTE: PATIENT ALERT AND ORIENTED. VERY PAINFUL LOWER BACK. MEDICATED PER EMAR WITH GOOD RELIEF. PERRLA, WEARING GLASSES. DENIES NUMBNESS/TINGLING. 1-2 PERSON ASSIST TO BSC. ON ROOM AIR SATING ABOVE 95%. LUNGS SOUNDING CLEAR AND DIM IN BASES. DENIES COUGH/SOB. NO TELE. BP STABLE. PPP. NO SIGNS OF EDEMA. BOWEL TONES PRESENT. SMALL BM THIS AM. EATING SMALL AMOUNTS. DENIES ABDOMINAL PAIN/NAUSEA. LEFT UPPER ARM POWERGLIDE INFUSING NS TKO. IRON INFUSED THIS AM. DR. VILLAGRAN IN TO VISIT TO DISCUSS PLAN OF CARE. PATIENT FAMILY MEMBER CASTILLO AND SOFÍA UPDATED BY THIS RN OVER PHONE WITH PATIENT PERMISSION. PALLIATIVE CARE RN IN TO DISCUSS PLAN OF CARE WITH PATIENT. CALL LIGHT IN REACH.
--- NOTE | 2022-12-05 14:50 | NUR ---
Met with pt today to assess her cognitive ability and delirium. The patient tells me her recently. She also states she has no one to call or assist her at home. She states she is currently in her home, and has plans to go to the hospital. She also states she doesn't have any help or family close by. The bedside nurse has a phone number for pt's jose Cormier. Placed call to Casa and his Thu. They tell me Thu is pt's POA, and they live in [place]. They verify pt's , Casa's dad did recently pass away. They tell me they have spoken with Dr. Richmond, who is planning to send pt to [facility] for neurosurgery. Family is agreeable to this plan, and on their way back to [place] from an appointment. They state they plan to continue assisting pt as needed. We will discuss pt's code status when Thu is at the bedside.
[2022-12-05 15:25] VITALS: BP 123/60
--- NOTE | 2022-12-05 17:02 | NUR ---
PHYSICAL THERAPY IN ROOM AT THIS TIME.
[2022-12-05 17:17] VITALS: BP 164/95
[2022-12-05 17:59] VITALS: BP 123/60
--- NOTE | 2022-12-05 18:42 | NUR ---
PATIENT COBRA TRANSFER TO [facility]. NO ACUTE CHANGES, SEE PREVIOUS NOTES. MEDICATED FOR PAIN THROUGHOUT SHIFT. REMAINS ON ROOM AIR. VITAL SIGNS STABLE. ABX INFUSED PER EMAR. FAMILY UPDATED ON TRANSFER. REPORTED OFF TO EMMY SINGH FROM [facility]. PATIENT LEFT UNIT WITH PERSONAL BELONGINGS. PATIENT MISSING WALLET SINCE 12/04. CALL PLACED TO SECURITY TO UPDATE.
[2022-12-05 19:26] VITALS: BP 130/78
--- NOTE | 2022-12-05 19:50 | NUR ---
PATIENT TRANSPORTED WITH EMS TRANSPORTATION, VITALS OBTAINED, BELONGINGS IN PATIENT POSSESSION. PAPERWORK PACKET WITH EMS TRANSPORT. PRE SALES TECHNICAL ENGINEER NOTIFIED.
== END 2022-12-05 20:08 | disposition short-term general hospital (02) | DRG 812 ==
LOC: ER 12:38 → MEDS 15:40
PROVIDERS: Emergency Medicine; Internal Medicine; ADMIT Internal Medicine
PROC: 30233N1 Transfusion of Nonautologous Red Blood Cells into Peripheral Vein, Percutaneous Approach (ICD-10-PCS; principal; 2022-11-30)
DX: D50.0 Iron deficiency anemia secondary to blood loss (chronic) (principal); E87.20 Acidosis, unspecified; M46.26 Osteomyelitis of vertebra, lumbar region; M51.36 Other intervertebral disc degeneration, lumbar region; R54 Age-related physical debility; I48.0 Paroxysmal atrial fibrillation; E11.69 Type 2 diabetes mellitus with other specified complication; E87.6 Hypokalemia; I10 Essential (primary) hypertension; E03.9 Hypothyroidism, unspecified; B95.62 Methicillin resistant Staphylococcus aureus infection as the cause of diseases classified elsewhere; F32.A Depression, unspecified; F41.9 Anxiety disorder, unspecified; K59.00 Constipation, unspecified; G89.29 Other chronic pain; K21.9 Gastro-esophageal reflux disease without esophagitis; G47.00 Insomnia, unspecified; Z87.891 Personal history of nicotine dependence; Z91.038 Other insect allergy status; Z98.890 Other specified postprocedural states; Z79.01 Long term (current) use of anticoagulants; Z91.81 History of falling; Z79.899 Other long term (current) drug therapy
CPT/HCPCS: 36415; 36430; 72158; 80048; 80053; 81003; 82728; 82947; 83540; 83550; 85014; 85018; 85025; 85027; 86140; 86850; 86900; 86901; 86923; 87040; 87077; 87186; 93308; 93321; 96374; 96375; 97110; 97116; 97162; 99284-25; A9270; A9579; C9113; J0878; J2020; J2270; J2405; J2916; J3010; J3370; J7030; J7040; J7050; P9016